=== PATIENT | female | born 1955 | race Caucasian/White ===

== ENCOUNTER 2020-10-21 06:22 | Inpatient (IN) | payer OTHER, SELFPAY ==
[~2020-10-21] VITALS: Ht 170.2 cm; Wt 71.7 kg
[2020-10-21 06:23] VITALS: BP 121/89
--- NOTE | 2020-10-21 06:25 | NUR ---
65 Y/O FEMALE PRESENTED TO ED C/O SOB SINCE THIS MORNING. PT WAS UNABLE TO GET HER DIALYSIS THIS MORNING DUE TO SOB. PT DENIES CHEST PAIN , FEVER, BODY ACHES CHILLS. +COUGH , NONPRODUCTIVE. BL LUNG SOUNDS CLEAR. A/O X 4. RR EVEN AND MILDLY LABORED. PT PRESENTED ON GARNISHER W/ AFIB. CAP REFIL < 3 SEC . MILD BL LE EDEMA NOTED. SKIN WARM AND INTACT. PT DIALYSIS PORT ON RIGHT SIDE. PT ABD APPEARS ROUND , SOFT AND NONTENDER UPON PALPATION. PT DIALYSIS IS USUALLY ON M, W, F. PT PLACED IN GOWN. PT CONNECTED TO GARNISHER, PULSE OX AND BP CUFF. ERMD MADE AWARE OF PT STATUS. PMH: CHF, CKD AX: METFORMIN
--- NOTE | 2020-10-21 06:25 | NUR ---
22 G IV PLACED IN LT WRIST , BLOOD CULTURES & BLOOD LABS COLLECTED AND HANDED TO LAB.
[2020-10-21] MEDS ORDERED: DILTIAZEM 25 MG/5 ML VIAL IVP ONE ×2 (06:30→07:20)
--- NOTE | 2020-10-21 06:45 | NUR ---
STACY VALARIE SWAB COLLECTED AND HANDED TO LAB.
[2020-10-21 07:08] LABS: BASOPHILS % (AUTO) 0.9 % (0.0-2.0); EOSINOPHILS % (AUTO) 0.6 % (0.0-4.0); HEMATOCRIT 35.7 % (36-48); LYMPHOCYTES # (AUTO) 0.8 K/uL (2.5-16.5); LYMPHOCYTES % (AUTO) 18.3 % (20.5-51.1); MEAN CORPUSCULAR HEMOGLOBIN 31 pg (27-31); MEAN CORPUSCULAR HGB CONC 34 g/dL (33-37); MEAN CORPUSCULAR VOLUME 92.3 fL (80-94); MONOCYTES # (AUTO) 0.3 K/uL (0.8-1.0); MONOCYTES % (AUTO) 7.1 % (1.7-9.3); NEUTROPHILS # (AUTO) 3.3 K/uL (1.8-7.7); NEUTROPHILS % (AUTO) 73.1 % (42.2-75.2); PLATELET COUNT (AUTO) 165 K/uL (140-450); RED BLOOD CELL COUNT(AUTO) 3.87 MIL/uL (4.20-5.40); RED CELL DISTRIBUTION WIDTH 15.9 % (11.6-13.7); WHITE BLOOD COUNT (AUTO) 4.5 K/uL (4.8-10.8)
--- NOTE | 2020-10-21 07:10 | NUR ---
PT RESTING IN BED, LOCKED AND IN LOWEST POSITION, HOB ELEVATED, SIDE RAIL X2 FOR PT SAFETY. NO ACUTE DISTRESS NOTED. VSS.
--- NOTE | 2020-10-21 07:15 | NUR ---
REPORT PROVIDED TO LYNN LUCAS FOR CONTINUATION OF CARE.
--- NOTE | 2020-10-21 07:16 | NUR ---
Report received from LYNN zuñiga, transfered care at this time.
--- NOTE | 2020-10-21 07:16 | NUR ---
Jhon chen in [facility] - 10/21/20 at 1039 by BROOKE Report received from LYNN Lebron, transfered care at this time.
[2020-10-21 07:28] LABS: ALBUMIN 2.8 g/dL (3.4-5.0); CARBON DIOXIDE 26.8 mmol/L (21-32); CREATININE 2.7 mg/dL (0.6-1.3); POTASSIUM 4.8 mmol/L (3.5-5.1); TOTAL BILIRUBIN 0.7 mg/dL (0.0-1.0)
--- NOTE | 2020-10-21 07:40 | NUR ---
Pt resting, equal visible rise and fall of chest, will continue to monitor.
--- NOTE | 2020-10-21 08:12 | NUR ---
CRITICAL LAB RESULT-Lab called Troponin level 0.180, Dr. Menchaca made aware
[2020-10-21] MEDS ORDERED: DILTIAZEM 125 MG in DEXTROSE 5% 100 ML IV ONE (08:30)
[2020-10-21] MEDS ORDERED: ASPIRIN 81 MG TAB.CHEW PO ONE (09:00)
[2020-10-21] MEDS ORDERED: SYN.05 PO (09:05)
[2020-10-21] MEDS ORDERED: POTA10TE30 PO (09:05)
[2020-10-21] MEDS ORDERED: HYDR-734 PO (09:05)
[2020-10-21] MEDS ORDERED: AMLO5TAB PO (09:05)
[2020-10-21] MEDS ORDERED: CARV25TA PO (09:05)
[2020-10-21] MEDS ORDERED: FURO-570 PO (09:05)
[2020-10-21] MEDS ORDERED: APIX2.5 PO (09:05)
[2020-10-21] MEDS ORDERED: LOSA50TA66 PO (09:05)
--- NOTE | 2020-10-21 09:09 | NUR ---
Spoke with pt family for pending admission.
[2020-10-21] MEDS ORDERED: DILTIAZEM 125 MG/25 ML VIAL IV ONE ×2 (09:17→22:17)
[2020-10-21] MEDS ORDERED: ACETAMINOPHEN 325 MG TAB PO PRN (10:40)
[2020-10-21] MEDS ORDERED: HYDROcodone/APAP 5/325 MG 1 TAB TAB PO PRN (10:40)
[2020-10-21] MEDS ORDERED: KCL 20 MEQ/WATER INJ PREMIX 200 ML IV PRN (10:40)
[2020-10-21] MEDS ORDERED: MAG SULF 2000 MG/WATER PREMIX 50 ML IV PRN (10:40)
[2020-10-21] MEDS ORDERED: LORazepam 1 MG TAB PO PRN (10:40)
[2020-10-21] MEDS ORDERED: ONDANSETRON 4 MG/2 ML VIAL IVP PRN (10:40)
[2020-10-21] MEDS ORDERED: DILTIAZEM 125 MG in DEXTROSE 5% 100 ML IV SCH (10:45)
--- NOTE | 2020-10-21 11:35 | NUR ---
Jhon chen in ED - 10/22/20 at 0534 by [facility] PT YELLING FROM HER BED TO BE ASSISTED TO A SITTING POSITION. PT SAT UP IN BED AND THEN ASKED FOR ASSISTANCE TO LAY BACK DOWN.
--- NOTE | 2020-10-21 11:37 | NUR ---
Jhon chen in [facility] - 10/21/20 at 1142 by [facility] Gave report to LYNN Dodson, pending admission [id number].
[2020-10-21] MEDS ORDERED: cefTRIAXone 1,000 MG VIAL ONE (12:28)
[2020-10-21] MEDS: FUROSEMIDE 40 MG/4 ML VIAL IVP SCH ×2 (12:41→21:00)
[2020-10-21] MEDS ORDERED: AZITHROMYCIN 500 MG INJ VIAL IV ONE (13:05)
[2020-10-21] MEDS: AZITHROMYCIN 500 MG in DEXTROSE 5% 250 ML IV SCH (13:13)
--- NOTE | 2020-10-21 16:18 | NUR ---
DR. SARAH PAULA. PT IS REQUESTING TO LEAVE AMA.
--- NOTE | 2020-10-21 16:25 | NUR ---
PT SPOKE TO DR. SMITH ON PORTABLE PHONE. PT AGREED TO STAY THE NIGHT TONIGHT.
--- NOTE | 2020-10-21 17:18 | NUR ---
Pt sleeping, repositioned self in bed, VSS, will continue to monitor.
--- NOTE | 2020-10-21 19:34 | NUR ---
Gave report to LYNN Ramirez, transfered all care at this time.
--- NOTE | 2020-10-21 19:35 | NUR ---
RECEIVED REPORT FROM LYNN LUCAS AND ASSUMED CARE.
--- NOTE | 2020-10-21 22:10 | NUR ---
PT RESTING COMFORTABLY IN BED. ALL VSS. ONE SIDE RAIL UP. ALL NEEDS MET.
--- NOTE | 2020-10-21 23:34 | NUR ---
PT YELLING FROM HER BED TO BE ASSISTED TO A SITTING POSITION. PT SAT UP IN BED AND THEN ASKED FOR ASSISTANCE TO LAY BACK DOWN.
--- NOTE | 2020-10-22 01:53 | NUR ---
PT YELLING FROM HER ROOM FOR ASSISTANCE IN SITTING UP. PT STATES THAT SHE WANTS TO GO HOME. I ADV PT THAT SHE IS SICK AND NEEDS CARE. PT VERBALIZED UNDERSTANDING.
--- NOTE | 2020-10-22 03:47 | NUR ---
PT LAYING IN BED STILL STATING THAT SHE WANTS TO GO HOME. EXPLAINED TO THE PT AGAIN THAT SHE SHOULD STAY. PT VERBALIZES UNDERSTANDING AGAIN AT THIS TIME.
--- NOTE | 2020-10-22 05:37 | NUR ---
PT RESTING IN BED AT THIS TIME. ALL NEEDS MET AND ATTENDED TO. ONE SIDE RAIL UP AND BED IN LOWEST POSITION
--- NOTE | 2020-10-22 07:15 | NUR ---
REPORT GIVEN TO LYNN GAMBINO
[2020-10-22] MEDS: FUROSEMIDE 40 MG/4 ML VIAL IVP SCH (09:21)
[2020-10-22] MEDS: DOCUSATE SODIUM 100 MG GELCAP PO SCH (09:21)
--- NOTE | 2020-10-22 09:32 | NUR ---
PATIENT HAS BEEN SCREENED AND CATEGORIZED MODERATE NUTRITION RISK. PATIENT WILL BE SEEN WITHIN 3-5 DAYS OF ADMISSION. 10/23/20 10/25/[address]
[2020-10-22 09:49] LABS: BASOPHILS % (AUTO) 0.7 % (0.0-2.0); EOSINOPHILS % (AUTO) 0.6 % (0.0-4.0); HEMATOCRIT 35.5 % (36-48); HEMOGLOBIN 11.8 g/dL (12.0-16.0); LYMPHOCYTES # (AUTO) 1.1 K/uL (2.5-16.5); LYMPHOCYTES % (AUTO) 20.5 % (20.5-51.1); MEAN CORPUSCULAR HEMOGLOBIN 31 pg (27-31); MEAN CORPUSCULAR HGB CONC 33 g/dL (33-37); MEAN CORPUSCULAR VOLUME 92.9 fL (80-94); MONOCYTES # (AUTO) 0.4 K/uL (0.8-1.0); MONOCYTES % (AUTO) 7.2 % (1.7-9.3); NEUTROPHILS # (AUTO) 3.7 K/uL (1.8-7.7); PLATELET COUNT (AUTO) 144 K/uL (140-450); RED BLOOD CELL COUNT(AUTO) 3.82 MIL/uL (4.20-5.40); WHITE BLOOD COUNT (AUTO) 5.2 K/uL (4.8-10.8)
[2020-10-22 10:13] LABS: ALBUMIN 2.9 g/dL (3.4-5.0); CARBON DIOXIDE 26.7 mmol/L (21-32); CREATININE 3.7 mg/dL (0.6-1.3); POTASSIUM 4.7 mmol/L (3.5-5.1); TOTAL BILIRUBIN 0.6 mg/dL (0.0-1.0)
[2020-10-22 10:14] LABS: CHOL/HDL RATIO 4.2 (1-4.5); MAGNESIUM 2.4 mg/dL (1.8-2.4)
[2020-10-22] MEDS ORDERED: AZITHROMYCIN 500 MG INJ VIAL IV ONE (10:47)
[2020-10-22] MEDS: AZITHROMYCIN 500 MG in DEXTROSE 5% 250 ML IV SCH (11:11)
--- NOTE | 2020-10-22 12:04 | NUR ---
Jhon chen in ED - 10/22/20 at 1209 by [facility] JORD[facility] GARCIA CALLED [facility] - TOLD THAT THEY ARE UNABLE TO DO DIALYSIS IN ER. RN HOME HEALTH MADE AWARE
[2020-10-22] MEDS ORDERED: cefTRIAXone 1,000 MG VIAL ONE (12:05)
--- NOTE | 2020-10-22 12:10 | NUR ---
SOCIAL WORK NOTE: SW WAS UNABLE TO MEET PATIENT AT BEDSIDE DUE TO MEDICAL CONDITION. SW LEFT VM WITH PATIENT'S SEAN VILLALPANDO [phone].
--- NOTE | 2020-10-22 12:18 | NUR ---
MONA RN SPOKE WITH [facility]- WILL COME TO ASSESS PATIENT
--- NOTE | 2020-10-22 12:18 | NUR ---
ALHAJI DUNN SPOKE WITH [facility] NURSE- WILL COME TO ASSESS PATIENT
--- NOTE | 2020-10-22 12:18 | NUR ---
Jhon hortonelisha in [facility] - 10/22/20 at 1218 by [facility] ALHAJI DUNN SPOKE WITH [facility] NURSE- WILL COME TO ASSESS PATIENT
--- NOTE | 2020-10-22 12:41 | NUR ---
DISCHARGE PLANNING: THIS IS A 65 Y/O FEMALE PATIENT FROM HOME, WHO CAME IN DUE TO SHORT OF BREATH. PAST MEDICAL HISTORY INCLUDE ESRD, HTN. INITIAL DIAGNOSIS OF UNCONTROLLED AFIB, COVID 19. RAPID TEST POSITIVE. ON ROCEPHIN, AZITHROMYCIN, LASIX. CXR SHOWED CARDIOMEGALY WITH PULMONARY VASCULAR CONGESTION AND LIKE INTERSTITIAL EDEMA. SUPERIMPOSED PNEUMONIA CANNOT BE EXCLUDED. CARDIO, NEPHRO AND PULMO CONSULTS IN PLACE. DC PLAN PENDING ON PATIENTS RESPONSE TO TREATMENT. Addendum: 10/24/20 at 1245 by Leslie Graham CM DC EDGE BEADER: CALLED PATIENTS TO CLARIFY WHICH LOCATION PATIENT RECEIVED DIALYSIS AT. HE CONFIRMED THAT PATIENT RECEIVES DIALYSIS AT THE [facility] [phone] HOWEVER SHE IS COVID POSTIVE SO WILL HAVE TO GO TO A DIFFERENT LOCATION Addendum: 10/24/20 at 1248 by Leslie Graham CM DC EDGE BEADER: SPOKE TO TASHI AT [facility] PATIENT [place] [facility] HE WILL BE CONTACTING THE PATIENT WITH HER NEW CHAIR TIME Addendum: 10/24/20 at 1603 by Leslie Graham CM JODIE PEREZ: LATE ENTRY FAXED ORDER FOR HOME 02 TO [facility]. SPOKE TO BEVERLY AT [facility] [phone] HE STATED THAT ALL HIS DRIVERS WENT HOME FOR THE DAY. Addendum: 10/24/20 at 1610 by Leslie Graham CM JODIE PEREZ: NOTIFIED LYNN SPARROW THAT HOME 02 CAN NOT BE DELIVERED TODAY. Addendum: 10/24/20 at 1617 by Leslie Graham CM JODIE PEREZ: FOLLOWED UP WITH BEVERLY [phone] AT [facility] THEY WILL NOT BE WORKING TOMORROW BUT RETURNING ON WEDNESDAY WITH THEIR TANK WASHER STAFF
--- NOTE | 2020-10-22 15:24 | NUR ---
PER DR SMITH, PT OKAY TO DOWNGRADE TO TELE.
--- NOTE | 2020-10-22 16:13 | NUR ---
DIALYSIS NURSE AT BEDSIDE
--- NOTE | 2020-10-22 16:16 | NUR ---
REPORT GIVEN TO LYNN SMALL. TRANSFER OF CARE AT THIS TIME.
--- NOTE | 2020-10-22 16:30 | NUR ---
DIALYSIS NURSE AT BEDSIDE, VSS, NO DISTRESS AT THIS TIME
--- NOTE | 2020-10-22 18:17 | NUR ---
2000ML OUT FROM DIALYSIS, VSS, NO ACUTE DISTRESS AT THIS TIME
--- NOTE | 2020-10-22 19:23 | NUR ---
REPORT RECEIVED FROM STACI BAILEY FOR CONTINUITY OF CARE. PT ON 4 L NASAL CANNULA. A&OX4. IV SITES R SUBCLAVIAN PORT, LAC 22G, LHAND 22G, ALL SALINE LOCKED, INTACT, PATENT AND GOOD BLOOD RETURN.
--- NOTE | 2020-10-22 19:23 | NUR ---
PT ENDORSED TO PATRICK BAILEY
--- NOTE | 2020-10-22 21:00 | NUR ---
PT ON 4 L NASAL CANNULA. O2 SATURATION 94%. WILL CONTINUE TO MONITOR.
--- NOTE | 2020-10-22 23:00 | NUR ---
RECEIVED CALL FROM PT'S FAMILY. UPDATED ON PT STATUS. ALL QUESTIONS AND CONCERNS ANSWERED AT THIS TIME.
--- NOTE | 2020-10-23 01:20 | NUR ---
PT HAS EYES CLOSED, RESPIRATIONS EVEN AND UNLABORED. CHEST RISE IS SYMMETRICAL. WILL CONTINUE TO MONITOR.
--- NOTE | 2020-10-23 03:44 | NUR ---
PT HAS EYES CLOSED, RESPIRATIONS EVEN AND UNLABORED. CHEST RISE IS SYMMETRICAL. WILL CONTINUE TO MONITOR.
--- NOTE | 2020-10-23 05:30 | NUR ---
PT HAS EYES CLOSED, RESPIRATIONS EVEN AND UNLABORED. CHEST RISE IS SYMMETRICAL. WILL CONTINUE TO MONITOR.
--- NOTE | 2020-10-23 06:15 | NUR ---
PT ABLE TO USE COMMODE. STEADY GAIT.
--- NOTE | 2020-10-23 07:00 | NUR ---
DR TOMLIN IN TO SEE IN PT. UPDATED ON PT STATUS
--- NOTE | 2020-10-23 07:28 | NUR ---
REPORT GIVEN TO JOSHUA BAILEY FOR CONTINUITY OF CARE
[2020-10-23] MEDS: METOPROLOL 25 MG TAB PO SCH ×2 (09:00→21:00)
[2020-10-23] MEDS: DOCUSATE SODIUM 100 MG GELCAP PO SCH (09:00)
--- NOTE | 2020-10-23 09:01 | NUR ---
Stable VSS Afebrile Has been admitted Awaiting bed on floor
[2020-10-23 09:03] LABS: BASOPHILS % (AUTO) 0.6 % (0.0-2.0); EOSINOPHILS % (AUTO) 0.6 % (0.0-4.0); HEMATOCRIT 34.4 % (36-48); HEMOGLOBIN 11.7 g/dL (12.0-16.0); LYMPHOCYTES # (AUTO) 0.9 K/uL (2.5-16.5); LYMPHOCYTES % (AUTO) 15.8 % (20.5-51.1); MEAN CORPUSCULAR HEMOGLOBIN 31 pg (27-31); MEAN CORPUSCULAR HGB CONC 34 g/dL (33-37); MEAN CORPUSCULAR VOLUME 91.1 fL (80-94); MONOCYTES # (AUTO) 0.4 K/uL (0.8-1.0); MONOCYTES % (AUTO) 6.9 % (1.7-9.3); NEUTROPHILS # (AUTO) 4.4 K/uL (1.8-7.7); NEUTROPHILS % (AUTO) 76.1 % (42.2-75.2); PLATELET COUNT (AUTO) 138 K/uL (140-450); RED BLOOD CELL COUNT(AUTO) 3.77 MIL/uL (4.20-5.40); RED CELL DISTRIBUTION WIDTH 15.8 % (11.6-13.7); WHITE BLOOD COUNT (AUTO) 5.7 K/uL (4.8-10.8)
--- NOTE | 2020-10-23 09:22 | NUR ---
SAdmitted report to floor Ambulated to Rm Placed in bed Nurse aware
[2020-10-23 09:30] VITALS: BP 141/88
--- NOTE | 2020-10-23 10:00 | NUR ---
Admitted from ED , with chief complaint of SOB. DX: Uncontrolled Afib, Covid positive. pt is a 65 y/o ,Female, Cooperative, oriented to call light, bed, phone,television, bathroom, smoking policy,visiting hours, procedures, ID bracelet on. Belongings list checked. instructed pt to call for assistance, call light within reach, pt verbalized understanding.
[2020-10-23 10:02] LABS: ALBUMIN 2.8 g/dL (3.4-5.0); ANION GAP 13.8 (8-16); CARBON DIOXIDE 27.3 mmol/L (21-32); CREATININE 3.2 mg/dL (0.6-1.3); POTASSIUM 4.1 mmol/L (3.5-5.1); TOTAL BILIRUBIN 0.6 mg/dL (0.0-1.0)
[2020-10-23 11:09] LABS: MAGNESIUM 2.1 mg/dL (1.8-2.4)
[2020-10-23 12:00] VITALS: BP 133/77
[2020-10-23] MEDS: AZITHROMYCIN 500 MG in DEXTROSE 5% 250 ML IV SCH (12:06)
[2020-10-23 16:00] VITALS: BP 118/69
--- NOTE | 2020-10-23 19:15 | NUR ---
PT RESTING ON HER LEFT SIDE. NO SOB NOTED. NO SIGNS OF PAIN. WILL ENDORSE TO NEXT SHIFT NURSE FOR CONTINUITY OF CARE.
[2020-10-23 20:00] VITALS: BP 111/84
[2020-10-24] VITALS: BP 148/107
[2020-10-24 04:00] VITALS: BP 133/80
--- NOTE | 2020-10-24 07:25 | NUR ---
RECEIVED PATIENT FROM NIGHT NURSE. PATIENT IN BED SLEEPING, CHEST NOTED RISING. NO ACUTE S/S DISTRESS. RESP EVEN AND UNLABORED ON 3LNC. HD PATIENT ON WEDNESDAY AND WEDNESDAY. RIJ FOR HD. LAC 20G AND LH 22G. HOB ELEVATED. CALL LIGHT WITHIN REACH. WILL CONTINUE TO MONITOR.
[2020-10-24 08:00] VITALS: BP 132/76
[2020-10-24] MEDS: DOCUSATE SODIUM 100 MG GELCAP PO SCH ×2 (09:00→09:43)
[2020-10-24 09:39] LABS: BASOPHILS # (AUTO) 0.1 K/uL (0.00-0.22); EOSINOPHILS % (AUTO) 0.4 % (0.0-4.0); HEMATOCRIT 36.7 % (36-48); HEMOGLOBIN 12.4 g/dL (12.0-16.0); LYMPHOCYTES # (AUTO) 0.8 K/uL (2.5-16.5); MEAN CORPUSCULAR HEMOGLOBIN 31 pg (27-31); MEAN CORPUSCULAR HGB CONC 34 g/dL (33-37); MEAN CORPUSCULAR VOLUME 91.3 fL (80-94); MONOCYTES # (AUTO) 0.4 K/uL (0.8-1.0); MONOCYTES % (AUTO) 7.1 % (1.7-9.3); NEUTROPHILS # (AUTO) 4.1 K/uL (1.8-7.7); NEUTROPHILS % (AUTO) 76.5 % (42.2-75.2); PLATELET COUNT (AUTO) 160 K/uL (140-450); RED BLOOD CELL COUNT(AUTO) 4.02 MIL/uL (4.20-5.40); RED CELL DISTRIBUTION WIDTH 15.8 % (11.6-13.7); WHITE BLOOD COUNT (AUTO) 5.3 K/uL (4.8-10.8)
[2020-10-24] MEDS: METOPROLOL 25 MG TAB PO SCH ×2 (09:43→23:00)
--- NOTE | 2020-10-24 09:43 | NUR ---
PATIENT SITTING UP IN BED AWAKE AND ALERT. ABLE TO MAKE NEEDS KNOWN. RESP EVEN AND UNLABORED ON ROOM AIR. NO NOTED SOB. NASAL CANULA ON BED AND WAS ENCOURAGED PATIENT TO USE IF FEELING ANY SOB. PATIENT VERBALIZED UNDERSTANDING. LAC 20G AND LH 22G INTACT AND PATENT, SL. RIGHT IJ NOTED FOR HD. MORNING ROUTINE MEDICATIONS GIVEN. PLAN OF CARE DISCUSSED, PATIENT VERBALIZED UNDERSTANDING. CALL LIGHT WITHIN REACH. WILL CONTINUE TO MONITOR.
[2020-10-24 10:37] LABS: ALBUMIN 2.7 g/dL (3.4-5.0); ANION GAP 14.6 (8-16); CARBON DIOXIDE 26.9 mmol/L (21-32); CREATININE 3.5 mg/dL (0.6-1.3); MAGNESIUM 2.3 mg/dL (1.8-2.4); POTASSIUM 4.5 mmol/L (3.5-5.1); TOTAL BILIRUBIN 0.7 mg/dL (0.0-1.0)
--- NOTE | 2020-10-24 11:35 | NUR ---
PATIENT SLEEPING IN BED, CHEST NOTED RISING. NO ACUTE S/S DISTRESS. CALL LIGHT WITHIN REACH. WILL CONTINUE TO MONITOR.
[2020-10-24] MEDS: AZITHROMYCIN 500 MG in DEXTROSE 5% 250 ML IV SCH (11:55)
[2020-10-24 12:00] VITALS: BP 127/75
--- NOTE | 2020-10-24 14:24 | NUR ---
ROUTINE MEDICATIONS GIVEN. PATIENT IN BED AWAKE AND ALERT. HD ORDER FOR TODAY. PATIENT VERBALIZED UNDERSTANDING. MESSAGE LEFT TO HD NURSE. NO ACUTE S/S DISTRESS. CALL LIGHT WITHIN REACH. WILL CONTINUE TO MONITOR.
[2020-10-24 16:00] VITALS: BP 155/91
--- NOTE | 2020-10-24 16:38 | NUR ---
PATIENT IN BED SLEEPING, NO NOTED ACUTE S/S DISTRESS. RESP EVEN AND UNLABORED ON 3L NC, O2SAT 91%. CALL LIGHT WITHIN REACH. WILL CONTINUE TO MONITOR.
--- NOTE | 2020-10-24 17:35 | NUR ---
HD STARTED. PATIENT IN STABLE CONDITION.
--- NOTE | 2020-10-24 19:30 | NUR ---
HD COMPLETE. 2L OUTPUT. ENDORSED PATIENT TO NIGHT NURSE. PATIENT IN STABLE CONDITION.
--- NOTE | 2020-10-24 19:30 | NUR ---
RECEIVED PT . AAOX4 , NID , IV SITES INTACT AND PATENT , ON TELE MONITOR , O2 SAT WNL . POST HD TODAY W/ 2L OUTPUT . SAFETY MEASURES IN PLACE . CALL LIGHT WITHIN REACH . PLAN OF CARE DISCUSSED AND VERBALIZATION OF [id number] . WILL. TO MONITOR .
--- NOTE | 2020-10-25 00:37 | NUR ---
PT'S # [phone] Addendum: 10/25/20 at 0038 by Carmen Isbell RN SEAN VILLALPANDO
--- NOTE | 2020-10-25 02:00 | NUR ---
PT WANTS TO GO HOME . AMA - KRISTIN INFORM
--- NOTE | 2020-10-25 02:04 | NUR ---
PAGE DR Elda Camacho PT WANTS GO HOME NOW .
--- NOTE | 2020-10-25 02:05 | NUR ---
DR Elda BURCIAGA CALLBACK - INFORM PT WANTS TO GO HOME . DR. BURCIAGA AWARE THAT THE PT. IS COVID + AND ON O2 INHALATION .
--- NOTE | 2020-10-25 02:20 | NUR ---
EXPLAIN TO PT SHE IS COVID POSITIVE AND EXPLAIN TO HER IF EVER ANYTHING DOES NOT RIGHT - ADVICE HER TO GO IN THE ER - -PT'S VERBALIZE UNDERSTANDING . SIGN AMA WAIVER FORM - WILL INFORM DIRECTOR NETWORK DEVELOPMENT .
--- NOTE | 2020-10-25 02:45 | NUR ---
PT DISCHARGE AMA . STABLE CONDITION . PT. SKEET OPERATOR BY AND PT'S SISTER BY PRIVATE CAR . INFORM FOOD PROCESSING PLANT MANAGER Addendum: 10/25/20 at 0330 by Carmen Isbell RN AFTER EXPLAINATION OF THE CONSEQUENCES FOR BEING AMA PT STILL WANTS TO GO HOME AMA - PT. SIGNED THE AMA FORM
== END 2020-10-25 02:40 | disposition left against medical advice (07) | DRG 137 ==
LOC: MED 06:22 → MTU 10:42 → MMU 10-23 08:41 → MTU 10-23 09:10
PROVIDERS: ADMIT Hospitalist; ATTEND Hospitalist
PROC: 5A1D70Z Performance of Urinary Filtration, Intermittent, Less than 6 Hours Per Day (ICD-10-PCS; principal; 2020-10-21)
PROC: 5A1D70Z Performance of Urinary Filtration, Intermittent, Less than 6 Hours Per Day (ICD-10-PCS; 2020-10-24)
DX: U07.1 COVID-19 (principal); I13.2 Hypertensive heart and chronic kidney disease with heart failure and with stage 5 chronic kidney disease, or end stage renal disease; N18.6 End stage renal disease; Z99.2 Dependence on renal dialysis; I50.43 Acute on chronic combined systolic (congestive) and diastolic (congestive) heart failure; I48.91 Unspecified atrial fibrillation; N17.9 Acute kidney failure, unspecified; J12.89 Other viral pneumonia
CPT/HCPCS: 36415; 71045; 80053; 83036; 83735; 83880; 84484; 85025; 85379; 87081; 96374; 96375; 99291; J0456; J0696; J1644; J1940; J3490; J7060

== ENCOUNTER 2020-11-12 18:07 | Emergency (ER) | payer OTHER, SELFPAY ==
[~2020-11-12] VITALS: Ht 170.2 cm; Wt 77.1 kg
[~2020-11-12 18:07] MED LIST: AMLO5TAB PO; APIX2.5 PO; CARV25TA PO; FURO-570 PO; HYDR-734 PO; LOSA50TA66 PO; POTA10TE30 PO; SYN.05 PO
[2020-11-12 18:38] VITALS: BP 130/97
[2020-11-12 19:20] VITALS: BP 130/97
[2020-11-12 19:57] LABS: BASOPHILS # (AUTO) 0.2 K/uL (0.00-0.22); BASOPHILS % (AUTO) 4.1 % (0.0-2.0); EOSINOPHILS # (AUTO) 0.2 K/uL (0-0.4); EOSINOPHILS % (AUTO) 4.4 % (0.0-4.0); HEMATOCRIT 38.6 % (36-48); HEMOGLOBIN 12.6 g/dL (12.0-16.0); LYMPHOCYTES # (AUTO) 0.7 K/uL (2.5-16.5); LYMPHOCYTES % (AUTO) 17.6 % (20.5-51.1); MEAN CORPUSCULAR HEMOGLOBIN 31 pg (27-31); MEAN CORPUSCULAR HGB CONC 33 g/dL (33-37); MEAN CORPUSCULAR VOLUME 95.9 fL (80-94); MONOCYTES # (AUTO) 0.4 K/uL (0.8-1.0); MONOCYTES % (AUTO) 8.9 % (1.7-9.3); NEUTROPHILS # (AUTO) 2.8 K/uL (1.8-7.7); PLATELET COUNT (AUTO) 102 K/uL (140-450); RED BLOOD CELL COUNT(AUTO) 4.03 MIL/uL (4.20-5.40); RED CELL DISTRIBUTION WIDTH 18.2 % (11.6-13.7); WHITE BLOOD COUNT (AUTO) 4.3 K/uL (4.8-10.8)
[2020-11-12 20:07] LABS: APPEARANCE,URINE CLOUDY (CLEAR); BILIRUBIN,URINE 1+ (NEGATIVE); BLOOD, URINE 3+ (NEGATIVE); COLOR,URINE DARK YELLOW (YELLOW); LEUKOCYTE ESTERASE ,URINE TRACE (NEGATIVE); NITRITE, URINE NEGATIVE (NEGATIVE); PH,URINE 5.5 (5.0-9.0); UGLUCOSE NEGATIVE (NEGATIVE)
[2020-11-12 20:15] LABS: CREATININE 3.5 mg/dL (0.6-1.3); TOTAL BILIRUBIN 0.8 mg/dL (0.0-1.0)
[2020-11-12 20:25] LABS: POTASSIUM 5.9 mmol/L (3.5-5.1)
[2020-11-12 20:27] LABS: ANION GAP 13.2 (8-16); CARBON DIOXIDE 27.7 mmol/L (21-32)
[2020-11-12 20:40] LABS: RBC,URINE 20-50 /HPF (0-5); URINE AMORPHOUS URATE 2+ /HPF (None Seen); WBC,URINE 0-5 /HPF (0-5)
[2020-11-13] MEDS ORDERED: DOCU-300 PO (20:49)
[2020-11-13] MEDS ORDERED: ROSU20TA1 PO (20:49)
== END 2020-11-12 20:45 | disposition left against medical advice (07) ==
LOC: MED 18:07
DX: R14.0 Abdominal distension (gaseous) (principal); I12.0 Hypertensive chronic kidney disease with stage 5 chronic kidney disease or end stage renal disease; N18.6 End stage renal disease; E87.5 Hyperkalemia; I10 Essential (primary) hypertension; Z99.2 Dependence on renal dialysis; Z88.8 Allergy status to other drugs, medicaments and biological substances; Z98.890 Other specified postprocedural states; Z79.899 Other long term (current) drug therapy
CPT/HCPCS: 36415; 80053; 81001; 83690; 85025; 99284

== ENCOUNTER 2020-11-13 19:43 | Inpatient (IN) | payer OTHER, SELFPAY ==
[~2020-11-13] VITALS: Ht 170.2 cm; Wt 77.1 kg
[2020-11-13 19:52] VITALS: BP 133/78
--- NOTE | 2020-11-13 20:17 | NUR ---
PT TAKEN TO BED 1
--- NOTE | 2020-11-13 20:22 | NUR ---
EMERGENCY CONTACT: LEO -SISTER
--- NOTE | 2020-11-13 20:40 | NUR ---
currently states unable to provide urine right now.
--- NOTE | 2020-11-13 20:42 | NUR ---
Note undone in EDM - 11/13/20 at 4 by [email or web address] ACTUALLY HOSPITALIZED IN OCTOBER FOR SAME ISSUE BUT CHECKED HER SELF OUT AMA. THE BLOATING TO HER ABD HAS GOTTEN WORSE OVER THE PAST WEEK. ABD IS SEVERELY DISTENDED AND FIRM TO TOUCH, PT STATES SHE HAS PAIN BUT CURRENTLY DENIES ANY. PT ALSO HAS SWELLING AND TIGHTNESS TO BILATERAL LEGS, PT HAS DIFFICULTLY AMBULATING DUE TO LEG PAIN AND DISCOMFORT. PT DENIES ANY LIVER ISSUES HAS COPD, CHF, KIDNEY FAILURE. DENIES N/V HAS BEEN HAVING CONSTIPATION AND DIARRHEA. BOWELS SOUNDS HYPOACTIVE. PT DENIES EVER HAVING PARACENTESIS. PT PLACED IN GOWN, AND ON BEDSIDE MONITOR. BED IN LOWEST POSITION AND SIDERAIL UP X 1. HX - CHF, COPD, RENAL FAILURE, DM, HTN ALLERGY - METFORMIN
--- NOTE | 2020-11-13 20:44 | NUR ---
PT COMING IN FOR SEVERE ABD DISTENTION, POSSIBLE ASCITIES, SINCE OCTOBER. PT WAS ACTUALLY HOSPITALIZED IN OCTOBER FOR SAME ISSUE BUT CHECKED HER SELF OUT AMA. THE BLOATING TO HER ABD HAS GOTTEN WORSE OVER THE PAST WEEK. ABD IS SEVERELY DISTENDED AND FIRM TO TOUCH, PT STATES SHE HAS PAIN BUT CURRENTLY DENIES ANY. PT ALSO HAS SWELLING AND TIGHTNESS TO BILATERAL LEGS, PT HAS DIFFICULTLY AMBULATING DUE TO LEG PAIN AND DISCOMFORT. PT DENIES ANY LIVER ISSUES HAS COPD, CHF, KIDNEY FAILURE. DENIES N/V HAS BEEN HAVING CONSTIPATION AND DIARRHEA. BOWELS SOUNDS HYPOACTIVE. PT DENIES EVER HAVING PARACENTESIS. PT PLACED IN GOWN, AND ON BEDSIDE MONITOR. BED IN LOWEST POSITION AND SIDERAIL UP X 1. HX - CHF, COPD, RENAL FAILURE, DM, HTN ALLERGY - METFORMIN
--- NOTE | 2020-11-13 20:45 | NUR ---
PT HAS [facility] DIALYSIS CATH TO RIGHT UPPER CHEST, STATES LAST DIAYLSIS WAS 2 DAYS AGO
[2020-11-13 20:46] LABS: HEMATOCRIT 38.4 % (36-48); HEMOGLOBIN 12.5 g/dL (12.0-16.0); WHITE BLOOD COUNT (AUTO) 3.7 K/uL (4.8-10.8)
[2020-11-13] MEDS ORDERED: DOCU-300 PO (20:49)
[2020-11-13] MEDS ORDERED: ROSU20TA1 PO (20:49)
[2020-11-13 20:50] LABS: BASOPHILS # (AUTO) 0.1 K/uL (0.00-0.22); BASOPHILS % (AUTO) 1.8 % (0.0-2.0); EOSINOPHILS # (AUTO) 0.2 K/uL (0-0.4); EOSINOPHILS % (AUTO) 6.1 % (0.0-4.0); LYMPHOCYTES # (AUTO) 0.8 K/uL (2.5-16.5); LYMPHOCYTES % (AUTO) 22.2 % (20.5-51.1); MEAN CORPUSCULAR HEMOGLOBIN 31 pg (27-31); MEAN CORPUSCULAR HGB CONC 33 g/dL (33-37); MEAN CORPUSCULAR VOLUME 95.9 fL (80-94); MONOCYTES # (AUTO) 0.3 K/uL (0.8-1.0); MONOCYTES % (AUTO) 8.6 % (1.7-9.3); NEUTROPHILS # (AUTO) 2.3 K/uL (1.8-7.7); NEUTROPHILS % (AUTO) 61.3 % (42.2-75.2); PLATELET COUNT (AUTO) 123 K/uL (140-450); RED CELL DISTRIBUTION WIDTH 17.9 % (11.6-13.7)
--- NOTE | 2020-11-13 20:50 | NUR ---
PT BROUGHT IN HER PRESCRIPTIONS BUT THE [facility] ARE OUT ACCEPT FOR LASIX AND K+, PT STATES SHE HASN'T HAD THEM FOR A WHILE
--- NOTE | 2020-11-13 20:52 | NUR ---
ekg performed at bedside. ekg reads atrial flutter with predominant 2:1 av block
[2020-11-13 21:04] LABS: ALBUMIN 3.2 g/dL (3.4-5.0); CREATININE 3.7 mg/dL (0.6-1.3); TOTAL BILIRUBIN 1.1 mg/dL (0.0-1.0)
[2020-11-13 21:08] LABS: ANION GAP 12.9 (8-16); CARBON DIOXIDE 27.8 mmol/L (21-32)
--- NOTE | 2020-11-13 21:08 | NUR ---
IN AND OUT CATH DONE, URINE COLLECTED AND TAKEN TO LAB
[2020-11-13 21:11] LABS: POTASSIUM 5.7 mmol/L (3.5-5.1)
[2020-11-13 21:14] LABS: APPEARANCE,URINE CLOUDY (CLEAR); BILIRUBIN,URINE 1+ (NEGATIVE); BLOOD, URINE 2+ (NEGATIVE); COLOR,URINE DARK YELLOW (YELLOW); LEUKOCYTE ESTERASE ,URINE NEGATIVE (NEGATIVE); NITRITE, URINE NEGATIVE (NEGATIVE); PH,URINE 5.5 (5.0-9.0); UGLUCOSE NEGATIVE (NEGATIVE)
[2020-11-13] MEDS ORDERED: DEXTROSE 50% 50 ML SYR IVP ONE (21:20)
[2020-11-13] MEDS ORDERED: SODIUM ZIRCONIUM CYCLOSILICATE 10 GM POWD.PACK PO ONE (21:20)
[2020-11-13] MEDS ORDERED: CALCIUM GLUCONATE 10% 1000 MG/10 ML VIAL IVP ONE (21:20)
[2020-11-13] MEDS ORDERED: INSULIN REGULAR, HUMAN 100 UNIT/ML VIAL IVP ONE (21:20)
[2020-11-13 21:34] LABS: RBC,URINE 11-20 (MOD) /HPF (0-5); URINE AMORPHOUS URATE 2+ /HPF (None Seen); WBC,URINE 0-5 /HPF (0-5)
--- NOTE | 2020-11-13 22:00 | NUR ---
PT NEED TO USE RESTROOM, SET UP BEDPAN ON CHAIR, PT REFUSED TO USE AND INSISTED ON WALKING TO THE RESTROOM. PT NOT ABLE TO GET BACK TO ROOM BY HERSELF. ADVISED PT SHE WILL FRANCISCO TO USE BEDSIDE COMMODE FROM NOW ON.
[2020-11-13] MEDS ORDERED: LORazepam 0.5 MG TAB PO ONE (22:45)
[2020-11-13] MEDS ORDERED: ZOLPIDEM 5 MG TAB PO PRN (23:40)
[2020-11-13] MEDS ORDERED: ONDANSETRON 4 MG/2 ML VIAL IVP PRN (23:40)
[2020-11-13] MEDS ORDERED: ACETAMINOPHEN 325 MG TAB PO PRN (23:40)
[2020-11-13] MEDS ORDERED: LORazepam 1 MG TAB PO PRN (23:40)
--- NOTE | 2020-11-13 23:47 | NUR ---
PAGED DR GUERRA TO GET ORDERS FOR PAIN MED FOR PT, PT C/O ABD PAIN 06/10.
[2020-11-13] MEDS ORDERED: ASPIRIN 325 MG TAB ONE ×2 (23:51→23:52)
[2020-11-13] MEDS ORDERED: ACETAMINOPHEN 325 MG TAB ONE (23:51)
[2020-11-13] MEDS ORDERED: PANTOPRAZOLE 40 MG INJ VIAL ONE (23:51)
--- NOTE | 2020-11-14 00:02 | NUR ---
RECEIVED ORDERD FROM ADMITTING
[2020-11-14] MEDS: HYDROcodone/APAP 5/325 MG 1 TAB TAB PO PRN ×6 (00:15→23:40)
--- NOTE | 2020-11-14 00:56 | NUR ---
VALARIE SWAB COLLECTED FROM PT AND GIVEN TO METAL DRILL OPERATOR
[2020-11-14] MEDS: ALBUTEROL SULFATE/IPRATROPIU 3 ML SOL IH SCH ×2 (01:00→07:00)
--- NOTE | 2020-11-14 01:32 | NUR ---
COVID SWAB DONE AND WALKED TO LAB
--- NOTE | 2020-11-14 02:51 | NUR ---
ASSISTED PT TO BEDSIDE COMMODE. AND PLACED BACK IN BED AFTER URINATING. PT REMAINS ON BEDSIDE MONITOR. WILL CONTINUE TO MONITOR. PT IS REQUESTIONS MORE MEDS, ADVISED NOT QUITE TIME YET
--- NOTE | 2020-11-14 03:45 | NUR ---
MEDICATED FOR NAUSEA AND ABD PAIN
--- NOTE | 2020-11-14 05:11 | NUR ---
PT SLEEPING, REMAINS ON BEDSIDE MONITOR. RESPIRATIONS REGULAR EVEN AND UNLABORED
--- NOTE | 2020-11-14 07:29 | NUR ---
Pt report given to BLOSSOM BAILEY. Transfer of care at this time.
[2020-11-14 07:56] LABS: BASOPHILS # (AUTO) 0.1 K/uL (0.00-0.22); BASOPHILS % (AUTO) 1.4 % (0.0-2.0); EOSINOPHILS # (AUTO) 0.3 K/uL (0-0.4); HEMATOCRIT 35.3 % (36-48); HEMOGLOBIN 11.5 g/dL (12.0-16.0); LYMPHOCYTES % (AUTO) 23.4 % (20.5-51.1); MEAN CORPUSCULAR HEMOGLOBIN 31 pg (27-31); MEAN CORPUSCULAR HGB CONC 33 g/dL (33-37); MEAN CORPUSCULAR VOLUME 96.2 fL (80-94); MONOCYTES # (AUTO) 0.5 K/uL (0.8-1.0); MONOCYTES % (AUTO) 10.5 % (1.7-9.3); NEUTROPHILS # (AUTO) 2.6 K/uL (1.8-7.7); NEUTROPHILS % (AUTO) 58.7 % (42.2-75.2); PLATELET COUNT (AUTO) 114 K/uL (140-450); RED BLOOD CELL COUNT(AUTO) 3.67 MIL/uL (4.20-5.40); RED CELL DISTRIBUTION WIDTH 18.2 % (11.6-13.7); WHITE BLOOD COUNT (AUTO) 4.4 K/uL (4.8-10.8)
[2020-11-14 08:37] LABS: ALBUMIN 2.7 g/dL (3.4-5.0); ANION GAP 15.9 (8-16); CARBON DIOXIDE 24.6 mmol/L (21-32); CREATININE 3.8 mg/dL (0.6-1.3); POTASSIUM 5.5 mmol/L (3.5-5.1); TOTAL BILIRUBIN 0.8 mg/dL (0.0-1.0)
[2020-11-14] MEDS ORDERED: amLODIPine 5 MG TAB PO SCH (09:00)
[2020-11-14] MEDS ORDERED: NON-FORMULARY ITEM (Rosuvastatin Calcium* (Crestor*) 1 TAB) PO SCH (09:00)
[2020-11-14] MEDS: FUROSEMIDE 40 MG/4 ML VIAL IVP SCH ×2 (09:13→17:29)
[2020-11-14] MEDS: carvediloL 12.5 MG TAB PO SCH ×2 (09:15→20:20)
--- NOTE | 2020-11-14 09:15 | NUR ---
PATIENT HAS BEEN SCREENED AND CATEGORIZED MODERATE NUTRITION RISK. PATIENT WILL BE SEEN WITHIN 3-5 DAYS OF ADMISSION. 11/16/20 11/18/[address]
[2020-11-14] MEDS: APIXABAN 2.5 MG TAB PO SCH ×2 (09:16→20:17)
[2020-11-14] MEDS: DOCUSATE SODIUM 100 MG GELCAP PO SCH (09:17)
--- NOTE | 2020-11-14 09:31 | NUR ---
Patient will be admitted to care of [facility]. Admited to TELE. Will go to [id number]. Belongings list completed. Report to PAULY BAILEY.
--- NOTE | 2020-11-14 09:50 | NUR ---
RECEIVED THIS 65 YEAR OLD FEMALE PER JET FROM ER, ADMITTED A CASE OF CHF,ANASARCA UNDER DR. IQBAL, AWAKE,ALERT, ORIENTEDX4, BREATHING SPONTANEOUSLY WITH O2 AT 2L/MIN VIA NC, NOT IN DISTRESS NOTED, WITH IV CANNULA G18 AT LEFT AC ON SALINE LOCK NOTED, SAFETY MEASURES IN PLACE AND CONTINUE MONITOR
--- NOTE | 2020-11-14 09:50 | NUR ---
RECEIVED THIS 65YEAR OLD FEMALE PER JET FROM ER, AWAKE, ALERT, ORIENTEDX4 , BREATHING SPONTANEOUSLY WITH O2 AT 2L/MIN VIA NC, NOT IN DISTRESS NOTED. ADMITTED A CASE OF ANASARCA UNDER DR. IQBAL, TELEMETRY. WITH LEFT AC G18 ON SALINE LOCK AND RT CHEST TUNNELED CATHETER FOR HEMODIALYSIS NOTED. NO TELEMETRY BOX AVAILABLE. SAFETY MEASURES IN PLACE AND CONTINUE MONITOR
--- NOTE | 2020-11-14 10:09 | NUR ---
SOCIAL WORK NOTE: Patient's Orientation Unable To Assess Information Provided By SEAN VILLALPANDO - Comments SW WAS UNABLE TO MEET PATIENT AT BEDSIDE TO COMPLETE ASSESSMENT. SW COMPLETED ASSESSMENT WITH PATIENT'S . Preschool Adviser, Realtionship and Phone Number SEAN VILLALPANDO [phone] Healthcare Power of Directional Bore Operator No Does Patient Have a POLST No Identifying Problems No Social Work Triggers Is A Social Work Consult Needed No Mandate Report Filed No Explanation Of Identifying Problems PATIENT IS A 65-YEAR-OLD FEMALE ADMITTED FOR ANASARCA. PATIENT HAS PMHX OF CARDIAC DISORDERS, HYPERTENSION, AND RENAL DISEASE. REPORTED NO HX OF SUBSTANCE ABUSE OR MENTAL HEALTH. Admitted From Home Pre-Admission Level Of Functioning Status Assist With ADL Level Of Functioning Comment STATED PATIENT NEEDS ASSISTANCE WITH PREPARING MEALS AND GROCERY SHOPPING. Prior Resources/Services Used In Last 12 Months No Prior Resources Used Prior DME Wheelchair Dialysis Hemodialysis Name And Phone Number of Dialysis Facility [facility] ESRD Outpatient Days M F ESRD Outpatient Time 0500 Living Situation Lives With Family House Patient Had Caregiver No Home Support No Caregiver Issues Financial Issues No Known Financial Issue Referral To The Financial Counselor Needed No Factors/Needs No D/C Needs Identified Pt/Rep Participated In Discharge Plan Yes Patient/Family Agress With Discharge Plan Yes Discharge Plan Comments TENTATIVE DISCHARGE PLAN IS FOR PATIENT TO RETURN HOME. DC Plan Status Initiated
[2020-11-14] MEDS: hydrALAZINE 25 MG TAB PO SCH ×3 (10:44→17:00)
--- NOTE | 2020-11-14 10:44 | NUR ---
COMPLAINED OF ABDOMINAL PAIN 5/10, NORCO 1TAB ORDERED PRN AND DUE HYDRALAZINE IN AM GIVEN
--- NOTE | 2020-11-14 11:45 | NUR ---
HEMODIALYSIS STARTED AT BEDSIDE
[2020-11-14 12:09] LABS: CHOL/HDL RATIO 2.4 (1-4.5)
--- NOTE | 2020-11-14 13:45 | NUR ---
HEMODIALYSIS COMPLETED, REMOVED 1L OF FLUID, HEPARIN NON ADMINISTER
--- NOTE | 2020-11-14 15:30 | NUR ---
SEEN AND EXAMINED BY JAN GAMA NEPRO, ORDERED OF PARACENTESIS TOMORROW
--- NOTE | 2020-11-14 15:53 | NUR ---
DC PLANNIN YRS OLD FEMALE PATIENT WAS ADMITTED FROM HOME WITH A DX OF INGA. PT HAS A HX OF ESRD ON HEMODIALYSIS MWF WITH DR JOSEFA WEST AT [facility]/ RAPID COVID TEST NEGATIVE. ADMINISTERED HOME MEDS , SEEN BY DR MCCOY ACCOUNTS RECEIVABLE ACCOUNTANT ORDERED HEMODIALYSIS. DC PLAN TO GO HOME WHEN STABLE CM TO FOLLOW Addendum: 11/15/20 at 1621 by Anne Marie Gillette RN DC PLANNING: HEMODIALYSIS TODAY, PCR IS STILL PENDING, ON O2 2L/NC SATING 97% DC PLAN TO GO HOME WHEN STABLE CM TO FOLLOW Addendum: 11/16/20 at 1556 by Leslie Graham CM DC COMMUTATOR REPAIRER: RECEIVED ORDER FROM DR. IQBAL TO ARRANGE HD SCHEDULE TO [facility] FOR PATIENT. FAXED ORDER TO [facility] AND TRIED CONTACTING ISABEL IN ADMISSIONS NO ANSWER.
--- NOTE | 2020-11-14 17:02 | NUR ---
HD NURSE LOLITA PINEDA CONTACTED AND MADE AWARE THAT THE PATIENT HAD A ANOTHER HEMODIALYSIS TOMORROW
--- NOTE | 2020-11-14 19:20 | NUR ---
ENDORSED TO CULLET WASHER IN STABLE CONDITION FOR CONTINUITY OF CARE, CONSENT OBTAINED FOR PARACENTESIS
--- NOTE | 2020-11-14 19:25 | NUR ---
RECEIVED PT SITTING ON SIDE OF BED, AAOX4, COMPLAINING OF ABDOMINAL PAIN SEC TO ASCITES, WILL MEDICATE PRN, NO RESP DISTRESS WITH SAT OF 97% ON 2L NC, MAINTAIN ON DROPLET PRECAUTION FOR R/O COVID, SAFETY MEASURES IN PLACE, CALL LIGHT WITHIN REACH.
[2020-11-14 20:00] VITALS: BP 106/73
[2020-11-14] MEDS: SIMVASTATIN 40 MG TAB PO SCH (20:18)
--- NOTE | 2020-11-14 22:10 | NUR ---
PT AMBULATED TO BR USING WALKER, BM WITH SOFT STOOL, ASSISTED BACK TO BED, MONITORED CLOSELY.
[2020-11-15] VITALS: BP 115/71
[2020-11-15 04:00] VITALS: BP 103/63
--- NOTE | 2020-11-15 04:00 | NUR ---
PT SLEEPING, EASILY AROUSABLE, VITAL SIGNS STABLE, INSTRUCTED NPO FOR US OF ABDOMEN IN AM, DENIES ANY PAIN, MONITORED CLOSELY.
[2020-11-15] MEDS: ALBUTEROL SULFATE/IPRATROPIU 3 ML SOL IH SCH ×3 (07:00→19:00)
--- NOTE | 2020-11-15 07:20 | NUR ---
PT SLEEPING, NO SIGNS OF DISTRESS, REPORT GIVEN TO RN RELYN FOR CONTINUITY OF CARE.
--- NOTE | 2020-11-15 07:21 | NUR ---
RECEIVED ENDORSEMENT FROM PARTS SPECIALIST ASLEEP ON BED, BREATHING SPONTANEOUSLY WITH O2 AT 2L/MN VIA NC, NOT IN DISTRESS NOTED, WITH IV CANNULA G 18 AT LEFT AC ON SALINE LOCK AND RT CHEST TUNNELED CATHETER FOR HEMODIALYSIS. SAFETY MEASURES IN PLACE AND CONTINUE MONITOR
[2020-11-15 08:00] VITALS: BP 106/73
[2020-11-15 08:15] LABS: PROTHROMBIN TIME 12.1 secs (10.8-13.4)
[2020-11-15 08:18] LABS: BASOPHILS # (AUTO) 0.1 K/uL (0.00-0.22); BASOPHILS % (AUTO) 1.3 % (0.0-2.0); EOSINOPHILS # (AUTO) 0.2 K/uL (0-0.4); EOSINOPHILS % (AUTO) 5.3 % (0.0-4.0); HEMATOCRIT 34.6 % (36-48); HEMOGLOBIN 11.3 g/dL (12.0-16.0); LYMPHOCYTES # (AUTO) 0.6 K/uL (2.5-16.5); LYMPHOCYTES % (AUTO) 16.6 % (20.5-51.1); MEAN CORPUSCULAR HEMOGLOBIN 32 pg (27-31); MEAN CORPUSCULAR HGB CONC 33 g/dL (33-37); MEAN CORPUSCULAR VOLUME 96.6 fL (80-94); MONOCYTES # (AUTO) 0.3 K/uL (0.8-1.0); MONOCYTES % (AUTO) 8.8 % (1.7-9.3); NEUTROPHILS # (AUTO) 2.6 K/uL (1.8-7.7); PLATELET COUNT (AUTO) 128 K/uL (140-450); RED BLOOD CELL COUNT(AUTO) 3.58 MIL/uL (4.20-5.40); WHITE BLOOD COUNT (AUTO) 3.9 K/uL (4.8-10.8)
[2020-11-15 08:32] LABS: ALBUMIN 2.7 g/dL (3.4-5.0); ANION GAP 10.9 (8-16); CARBON DIOXIDE 26.7 mmol/L (21-32); CREATININE 3.4 mg/dL (0.6-1.3); MAGNESIUM 2.4 mg/dL (1.8-2.4); POTASSIUM 4.6 mmol/L (3.5-5.1); TOTAL BILIRUBIN 0.7 mg/dL (0.0-1.0)
[2020-11-15] MEDS: APIXABAN 2.5 MG TAB PO SCH ×2 (09:00→22:03)
--- NOTE | 2020-11-15 09:45 | NUR ---
RADIOLOGIST DEPARTMENT CALLED TO HOLD THE BLOOD THINNER FOR PARACENTESIS TODAY. FULLY AWAKE AND ALERT, DUE MEDICATION GIVEN WITH SIPS OF WATER,
[2020-11-15] MEDS: DOCUSATE SODIUM 100 MG GELCAP PO SCH (09:52)
[2020-11-15] MEDS: hydrALAZINE 25 MG TAB PO SCH ×3 (09:52→17:00)
[2020-11-15] MEDS: carvediloL 12.5 MG TAB PO SCH ×2 (09:53→21:00)
[2020-11-15] MEDS: FUROSEMIDE 40 MG/4 ML VIAL IVP SCH ×2 (09:54→17:31)
[2020-11-15] MEDS: HYDROcodone/APAP 5/325 MG 1 TAB TAB PO PRN ×3 (09:54→23:26)
--- NOTE | 2020-11-15 11:55 | NUR ---
INTERVENTIONAL RADIOLOGIST CAME TO DO THE PARACENTESIS, TIME OUT VERIFICATION DONE
[2020-11-15 12:00] VITALS: BP 102/73
--- NOTE | 2020-11-15 12:20 | NUR ---
PARACENTESIS DONE, REMOVED 3100ML OF FLUID, ALEXANDER COLOR NOTED. STILL AWAITING FOR DR. MCCOY IF HE WANTS TO SEND FOR DIAGNOSTIC TEST.
--- NOTE | 2020-11-15 14:10 | NUR ---
HEMODIALYSIS STARTED AT BEDSIDE
[2020-11-15 16:00] VITALS: BP 106/75
--- NOTE | 2020-11-15 16:10 | NUR ---
HEMODIALYSIS COMPLETED, 2.5L FLUID REMOVED
--- NOTE | 2020-11-15 17:31 | NUR ---
COMPLAINED OF ABDOMINAL PAIN 05/10 NORCO 1 TAB ORDERED PRN GIVEN, KEPT COMFORTABLE TO BED
--- NOTE | 2020-11-15 18:15 | NUR ---
ASCITIC FLUID SENT TO LAB FOR PANNEL TEST ORDERED BY DR. MCCOY, NEPHRO
--- NOTE | 2020-11-15 19:35 | NUR ---
ENDORSED TO IC DESIGNER CUSTOM IN STABLE CONDITION FOR CONTINUITY OF CARE
--- NOTE | 2020-11-15 19:45 | NUR ---
RECEIVED BEDSIDE REPORT FORM RN DAYSHIFT FOR CONTINUITY OF CARE, PT IN STABLE CONDITION.
[2020-11-15 19:48] LABS: APPEARANCE,SPUN,BODY FLUID HAZY (CLEAR); APPEARANCE,UNSPUN,BODY FLUID CLOUDY (CLEAR); COLOR,BODY FLUID DARK YELLOW (LT YELLOW); SPECIMENTYPE,BODY FLUID ASCITES
[2020-11-15 19:49] LABS: TOTAL VOLUME,BODY FLUID 3500 mL
[2020-11-15 20:00] VITALS: BP 90/58
--- NOTE | 2020-11-15 20:00 | NUR ---
PT SITTING UP IN BED SHE IS ON 2 LITERS VIA N/C. PT HAD NO C/O VOICED AT THIS TIME AND ALL REQUESTED NEEDS ATTENDED BY STAFF. ALL ORDERED PRECAUTIONS IN PLACE.
[2020-11-15 20:01] LABS: GLUCOSE,BODY FLUID 94 mg/dL
[2020-11-15 21:11] LABS: WBC, BODY FLUID 200 /cu. mm.
[2020-11-15 21:12] LABS: POLYNUCLEAR, BODY FLUID 20 %; RBC, BODY FLUID 10000 /cu. mm.
--- NOTE | 2020-11-15 21:45 | NUR ---
PT WAS ASSISTED UP TO TOILET AND BACK TO BED, SISTER CALLED AND WAS UPDATE REGARDING PT PROGRESS. PT WAS GIVEN DUE MEDS OF ELIQUIS AND ZOCOR. EDUCATION REGRADING MEDICATION PROVIDED AT BEDSIDE, PT VERBALIZED UNDERSTANDING. COREG WAS HELD DUE TO PT BLOOD PRESSURE 90/58. PT VERBALIZED UNDERSTANDING.
[2020-11-15] MEDS: SIMVASTATIN 40 MG TAB PO SCH (22:04)
--- NOTE | 2020-11-15 23:30 | NUR ---
PT C/O PAIN AND INSOMNIA. SHE WAS GIVEN PO/PRN AMBIEN AND NORCO, PT VERBALIZED UNDERSTANDING OF THE MEDICATIONS. ALL KNOWN REQUESTS ASSISTED BY STAFF.
[2020-11-16] VITALS: BP 118/81
[2020-11-16] MEDS: ALBUTEROL SULFATE/IPRATROPIU 3 ML SOL IH SCH ×3 (01:00→13:00)
--- NOTE | 2020-11-16 02:00 | NUR ---
PT IN BED ASLEEP, ALL ORDERED PROTOCOLS IN PLACE.
[2020-11-16 04:00] VITALS: BP 96/64
--- NOTE | 2020-11-16 04:00 | NUR ---
PT WAS ASSISTED TO TOILET PER REQUEST. PT RETURNEDE TO BED WITH USE OF WALKER AND STANDBY ASSISTANCE. GOWN CHANGED PER REQUEST.
[2020-11-16] MEDS: HYDROcodone/APAP 5/325 MG 1 TAB TAB PO PRN ×2 (06:40→10:40)
--- NOTE | 2020-11-16 07:56 | NUR ---
RECEIVED ENDORSEMENT FROM STUDIO PRODUCER NURSE. PATIENT ORIENT X4. AMB W/ ASSIST USING WALKER. LEFT AC SL INTACT. SKIN INTEGRITY INTACT. 2L NC. HD 11/14 1L OUTPUT, 11/15 2.5L OUTPUT. RIGHT SC OSMAN CATH. ULTRASOUND GUIDED PARACENTESIS 3.1L OUTPUT. SAFETY MEASURES IN PLACE. CALL LIGHT WITHIN REACH. WILL CONTINUE TO MONITOR.
[2020-11-16 08:00] VITALS: BP 115/78
[2020-11-16 08:38] LABS: BASOPHILS # (AUTO) 0.1 K/uL (0.00-0.22); BASOPHILS % (AUTO) 1.6 % (0.0-2.0); EOSINOPHILS # (AUTO) 0.2 K/uL (0-0.4); EOSINOPHILS % (AUTO) 7.6 % (0.0-4.0); HEMATOCRIT 35.7 % (36-48); HEMOGLOBIN 11.8 g/dL (12.0-16.0); LYMPHOCYTES # (AUTO) 0.7 K/uL (2.5-16.5); LYMPHOCYTES % (AUTO) 20.3 % (20.5-51.1); MEAN CORPUSCULAR HEMOGLOBIN 32 pg (27-31); MEAN CORPUSCULAR HGB CONC 33 g/dL (33-37); MEAN CORPUSCULAR VOLUME 95.5 fL (80-94); MONOCYTES # (AUTO) 0.4 K/uL (0.8-1.0); MONOCYTES % (AUTO) 12.9 % (1.7-9.3); NEUTROPHILS # (AUTO) 1.8 K/uL (1.8-7.7); NEUTROPHILS % (AUTO) 57.6 % (42.2-75.2); PLATELET COUNT (AUTO) 115 K/uL (140-450); RED BLOOD CELL COUNT(AUTO) 3.74 MIL/uL (4.20-5.40); RED CELL DISTRIBUTION WIDTH 18.2 % (11.6-13.7); WHITE BLOOD COUNT (AUTO) 3.2 K/uL (4.8-10.8)
[2020-11-16] MEDS: hydrALAZINE 25 MG TAB PO SCH ×2 (09:00→13:00)
--- NOTE | 2020-11-16 09:15 | NUR ---
MEDICATIONS DUE GIVEN TO PATIENT. HYDRALAZINE NOT GIVEN D/T BP 115/78. PAIN 8/10 PAIN MEDICATION GIVEN. NO DISTRESS NOTED. CALL LIGHT WITHIN REACH. WILL CONTINUE TO MONITOR NEEDED.
[2020-11-16 09:19] LABS: ALBUMIN 2.5 g/dL (3.4-5.0); ANION GAP 14.1 (8-16); CARBON DIOXIDE 25.1 mmol/L (21-32); CREATININE 3.2 mg/dL (0.6-1.3); MAGNESIUM 1.7 mg/dL (1.8-2.4); PHOSPHORUS 4.8 mg/dL (2.5-4.9); POTASSIUM 4.2 mmol/L (3.5-5.1); TOTAL BILIRUBIN 0.5 mg/dL (0.0-1.0)
[2020-11-16] MEDS: FUROSEMIDE 40 MG/4 ML VIAL IVP SCH (10:13)
[2020-11-16] MEDS: carvediloL 12.5 MG TAB PO SCH (10:14)
[2020-11-16] MEDS: DOCUSATE SODIUM 100 MG GELCAP PO SCH (10:15)
[2020-11-16] MEDS: APIXABAN 2.5 MG TAB PO SCH (10:26)
[2020-11-16 12:00] VITALS: BP 118/71
--- NOTE | 2020-11-16 17:00 | NUR ---
DISCHARGED INSTRUCTIONS GIVEN TO PATIENT AT BEDSIDE AND ENCOURAGED TO FOLLOW UP PCP AND DIALYSIS CENTER FOR HER SCHEDULED DIALYSIS MWF. ENCOURAGED TO SEEK MEDICAL HELP IN CASE OF EMERGENCIES, REMOVED ALL PATIENT ID BAND AND IV INTACT NO BLEEDING, CHANGE PT CLOTHING TO OWN CLOTHES, ESCORTED PT TO FRONT LOBBY VIA WHEEL CHAIR PT IS GOING HOME.PT IS STABLE
== END 2020-11-16 16:15 | disposition home or self-care (01) ==
LOC: MED 19:43 → MTU 23:46
PROVIDERS: ADMIT Internal Medicine; ATTEND Internal Medicine
PROC: 5A1D70Z Performance of Urinary Filtration, Intermittent, Less than 6 Hours Per Day (ICD-10-PCS; principal; 2020-11-14)
PROC: 0W9G3ZZ Drainage of Peritoneal Cavity, Percutaneous Approach (ICD-10-PCS; 2020-11-15)
DX: K74.60 Unspecified cirrhosis of liver (principal); R18.8 Other ascites; I12.0 Hypertensive chronic kidney disease with stage 5 chronic kidney disease or end stage renal disease; N18.6 End stage renal disease; Z88.8 Allergy status to other drugs, medicaments and biological substances; Z20.822 Contact with and (suspected) exposure to COVID-19; E11.22 Type 2 diabetes mellitus with diabetic chronic kidney disease; J44.9 Chronic obstructive pulmonary disease, unspecified; I48.0 Paroxysmal atrial fibrillation; E78.5 Hyperlipidemia, unspecified; E66.9 Obesity, unspecified; Z68.26 Body mass index [BMI] 26.0-26.9, adult; E87.5 Hyperkalemia; Z91.15 Patient's noncompliance with renal dialysis; D61.818 Other pancytopenia
CPT/HCPCS: 36415; 49083; 71045; 76705; 80053; 81001; 82945; 82948; 83036; 83735; 84100; 84157; 85025; 85610; 85730; 89051; 93005; 96374; 96375; 99285; C9113; J0610; J1644; J1815; J1940; J2001; J2405; J7030; U0003

== ENCOUNTER 2023-07-06 15:16 | Inpatient (IN) | payer OTHER ==
[~2023-07-06] VITALS: Ht 170.2 cm; Wt 64.9 kg
[~2023-07-06 15:16] MED LIST changes: +DOCU-300 PO; -LOSA50TA66 PO; +POTA10TA70 PO; -POTA10TE30 PO; +ROSU20TA1 PO; -SYN.05 PO
[2023-07-06 16:08] VITALS: BP 160/117; PULSE 109; RESP 18; TEMP 99.4; O2SAT 98
[2023-07-06] MEDS ORDERED: PIPERACILLIN/TAZOBACTAM 3.375 GM in DEXTROSE 5% 50 ML IV ONE (16:40)
[2023-07-06] MEDS ORDERED: PIPERACILLIN/TAZOBACTAM 3.375 GM VIAL IV ONE (16:43)
[2023-07-06 17:02] LABS: BASOPHILS # (AUTO) 0.1 K/uL (0.00-0.22); BASOPHILS % (AUTO) 0.6 % (0.0-2.0); EOSINOPHILS # (AUTO) 0.3 K/uL (0-0.4); EOSINOPHILS % (AUTO) 1.5 % (0.0-4.0); HEMATOCRIT 32.2 % (36-48); HEMOGLOBIN 10.9 g/dL (12.0-16.0); LYMPHOCYTES # (AUTO) 1.1 K/uL (2.5-16.5); LYMPHOCYTES % (AUTO) 5.9 % (20.5-51.1); MEAN CORPUSCULAR HEMOGLOBIN 31 pg (27-31); MEAN CORPUSCULAR HGB CONC 34 g/dL (33-37); MEAN CORPUSCULAR VOLUME 92.1 fL (80-94); MONOCYTES # (AUTO) 0.9 K/uL (0.8-1.0); MONOCYTES % (AUTO) 5.1 % (1.7-9.3); NEUTROPHILS % (AUTO) 86.9 % (42.2-75.2); PLATELET COUNT (AUTO) 351 K/uL (140-450); RED BLOOD CELL COUNT(AUTO) 3.49 MIL/uL (4.20-5.40); RED CELL DISTRIBUTION WIDTH 13.6 % (11.6-13.7); WHITE BLOOD COUNT (AUTO) 18.4 K/uL (4.8-10.8)
[2023-07-06] MEDS: NACL 0.9% 1,000 ML IV SCH (17:08)
[2023-07-06 17:21] LABS: ACETONE, SERUM NEGATIVE (NEGATIVE)
[2023-07-06 17:25] LABS: ALANINE AMINOTRANSFERASE 12 U/L (12-78); ALBUMIN 2.8 g/dL (3.4-5.0); ALKALINE PHOSPHATASE 128 U/L (50-136); ANION GAP 12.9 (8-16); ASPARTATE AMINOTRANSFERASE 16 U/L (15-37); CALCIUM 8.3 mg/dL (8.5-10.1); CARBON DIOXIDE 29.2 mmol/L (21-32); CHLORIDE 90 mmol/L (98-107); CREATINE KINASE, TOTAL 45 U/L (26-192); CREATININE 3.6 mg/dL (0.6-1.3); GFR ARICAN-AMERICAN 16 mL/min (>90); GFR NON ARICAN-AMERICAN 13 mL/min (>90); GLUCOSE 385 mg/dL (74-106); INR 0.93 (0.8-1.2); PARTIAL THROMBOPLASTIN TIME 29.6 secs (22-35.6); POTASSIUM 4.1 mmol/L (3.5-5.1); PROTHROMBIN TIME 9.8 secs (10.8-13.4); SODIUM SERUM 128 mmol/L (136-145); TOTAL BILIRUBIN 0.5 mg/dL (0.0-1.0); TOTAL PROTEIN, SERUM 7.8 g/dL (6.4-8.2); UREA NITROGEN, BLOOD 45 mg/dL (7-18)
[2023-07-06 17:36] LABS: LACTIC ACID 1.2 mmol/L (0.4-2.0)
[2023-07-06] MEDS ORDERED: INSULIN REGULAR, HUMAN 100 UNIT/ML VIAL SUBQ ONE (17:45)
[2023-07-06 19:36] VITALS: BP 175/83; PULSE 100; PULSE 105; RESP 18; RESP 2; TEMP 98.8; O2SAT 96
[2023-07-06 20:27] VITALS: PULSE 107
[2023-07-06] MEDS ORDERED: MELATONIN 3 MG TAB PO PRN (20:55)
[2023-07-06] MEDS ORDERED: DEXTROSE 50% 50 ML SYR IVP PRN (21:20)
[2023-07-06] MEDS ORDERED: NACL 0.9% 1,000 ML IV SCH (21:25)
[2023-07-07] VITALS (9 sets, daily range): BP systolic 117–158; BP diastolic 63–98; PULSE 67–107; RESP 16–18; TEMP 97–98.8; O2SAT 94–100
[2023-07-07] MEDS ORDERED: NACL 0.9% 1,000 ML IV SCH (01:15)
[2023-07-07] MEDS: BLOOD GLUCOSE MONITORING 1 DEV DEV FS SCH ×4 (07:12→22:30)
[2023-07-07] MEDS: NACL 0.9% 1,000 ML IV SCH (07:23)
[2023-07-07 11:02] LABS: BASOPHILS # (AUTO) 0.1 K/uL (0.00-0.22); BASOPHILS % (AUTO) 0.6 % (0.0-2.0); EOSINOPHILS # (AUTO) 0.4 K/uL (0-0.4); EOSINOPHILS % (AUTO) 2.3 % (0.0-4.0); HEMATOCRIT 29.8 % (36-48); HEMOGLOBIN 10.2 g/dL (12.0-16.0); LYMPHOCYTES # (AUTO) 1.3 K/uL (2.5-16.5); LYMPHOCYTES % (AUTO) 8.1 % (20.5-51.1); MEAN CORPUSCULAR HEMOGLOBIN 31 pg (27-31); MEAN CORPUSCULAR HGB CONC 34 g/dL (33-37); MONOCYTES # (AUTO) 0.9 K/uL (0.8-1.0); MONOCYTES % (AUTO) 5.7 % (1.7-9.3); NEUTROPHILS # (AUTO) 12.9 K/uL (1.8-7.7); NEUTROPHILS % (AUTO) 83.3 % (42.2-75.2); PLATELET COUNT (AUTO) 340 K/uL (140-450); RED BLOOD CELL COUNT(AUTO) 3.25 MIL/uL (4.20-5.40); RED CELL DISTRIBUTION WIDTH 13.5 % (11.6-13.7); WHITE BLOOD COUNT (AUTO) 15.5 K/uL (4.8-10.8)
[2023-07-07 11:24] LABS: ALBUMIN 2.3 g/dL (3.4-5.0); ANION GAP 9.7 (8-16); CALCIUM 8.2 mg/dL (8.5-10.1); CARBON DIOXIDE 30.4 mmol/L (21-32); CREATININE 3.7 mg/dL (0.6-1.3); POTASSIUM 4.1 mmol/L (3.5-5.1); TOTAL BILIRUBIN 0.5 mg/dL (0.0-1.0); TOTAL PROTEIN, SERUM 6.8 g/dL (6.4-8.2)
[2023-07-07] MEDS: INSULIN LISPRO SLIDING SCALE 100 UNITS/ML VIAL SUBQ PRN ×2 (17:07→22:34)
[2023-07-08 04:00] VITALS: BP 177/95; PULSE 85; RESP 18; TEMP 98.7; O2SAT 95
[2023-07-08] MEDS ORDERED: hydrALAZINE 20 MG/ML VIAL IVP ONE (04:40)
[2023-07-08] MEDS: BLOOD GLUCOSE MONITORING 1 DEV DEV FS SCH ×4 (06:20→20:23)
[2023-07-08] MEDS ORDERED: HYDROGEN PEROXIDE 3% 240 ML BTL TP ONE (07:40)
[2023-07-08] MEDS ORDERED: BUPIVACAINE-MPF 0.5% 30 ML VIAL INJ ONE (07:40)
[2023-07-08] MEDS ORDERED: PROPOFOL 200 MG/20 ML VIAL IV ONE ×2 (07:57→08:37)
[2023-07-08] MEDS ORDERED: LIDOCAINE MPF 2% 100 MG/5 ML VIAL INJ ONE (07:57)
[2023-07-08 08:00] VITALS: O2SAT 94
[2023-07-08] MEDS ORDERED: ceFAZolin 2,000 MG VIAL ONE (08:27)
[2023-07-08] MEDS ORDERED: ceFAZolin 1,000 MG VIAL ONE ×2 (08:36)
[2023-07-08] MEDS ORDERED: ONDANSETRON 4 MG/2 ML VIAL ONE (08:37)
[2023-07-08] MEDS ORDERED: HYDROmorphone 1 MG/ML AMP IVP PRN (08:55)
[2023-07-08] MEDS ORDERED: LABETALOL 20 MG/4 ML VIAL IVP PRN (08:56)
[2023-07-08] MEDS ORDERED: METOCLOPRAMIDE 10 MG/2 ML INJ VIAL IVP PRN (08:56)
[2023-07-08] MEDS ORDERED: hydrALAZINE 20 MG/ML VIAL IVP PRN (08:56)
[2023-07-08 11:15] VITALS: O2SAT 98
[2023-07-08] MEDS: INSULIN LISPRO SLIDING SCALE 100 UNITS/ML VIAL SUBQ PRN ×3 (12:12→20:25)
[2023-07-08] MEDS: MORPHINE SULFATE 2 MG/ML SYR IVP PRN (16:45)
[2023-07-08 20:00] VITALS: BP 143/70; PULSE 92; RESP 18; TEMP 98.8; O2SAT 94
[2023-07-09 04:00] VITALS: BP 113/67; PULSE 111; RESP 18; TEMP 98.4; O2SAT 98
[2023-07-09] MEDS: BLOOD GLUCOSE MONITORING 1 DEV DEV FS SCH ×3 (06:54→16:21)
[2023-07-09] MEDS: MORPHINE SULFATE 2 MG/ML SYR IVP PRN ×2 (08:09→15:42)
[2023-07-09 09:09] VITALS: PULSE 75; RESP 18; O2SAT 95
[2023-07-09 09:41] VITALS: BP 144/75; PULSE 75; RESP 18; TEMP 98.1; O2SAT 95
[2023-07-09] MEDS: INSULIN LISPRO SLIDING SCALE 100 UNITS/ML VIAL SUBQ PRN (16:26)
[2023-07-09] MEDS ORDERED: carvediloL 12.5 MG TAB PO SCH (21:00)
[2023-07-09] MEDS ORDERED: DOCUSATE SODIUM 100 MG GELCAP PO SCH (21:00)
[2023-07-09] MEDS ORDERED: APIXABAN 2.5 MG TAB PO SCH (21:00)
[2023-07-09] MEDS ORDERED: POTASSIUM CHLORIDE 10 MEQ TABER PO SCH (21:00)
[2023-07-10] MEDS ORDERED: amLODIPine 5 MG TAB PO SCH (09:00)
[2023-07-10] MEDS ORDERED: FUROSEMIDE 40 MG TAB PO SCH (09:00)
== END 2023-07-09 18:00 | DRG 853 ==
LOC: MED 15:16 → MTU 18:39
PROVIDERS: ADMIT Student in an Organized Health Care Education/Training Program; ATTEND Student in an Organized Health Care Education/Training Program
PROC: 5A1D70Z Performance of Urinary Filtration, Intermittent, Less than 6 Hours Per Day (ICD-10-PCS; 2023-07-07)
PROC: 0QBN0ZZ Excision of Right Metatarsal, Open Approach (ICD-10-PCS; principal; 2023-07-08 07:30)
PROC: 5A1D70Z Performance of Urinary Filtration, Intermittent, Less than 6 Hours Per Day (ICD-10-PCS; 2023-07-09)
DX: A41.9 Sepsis, unspecified organism (principal); A48.0 Gas gangrene; N18.6 End stage renal disease; E11.52 Type 2 diabetes mellitus with diabetic peripheral angiopathy with gangrene; L02.415 Cutaneous abscess of right lower limb; E87.1 Hypo-osmolality and hyponatremia; I13.2 Hypertensive heart and chronic kidney disease with heart failure and with stage 5 chronic kidney disease, or end stage renal disease; L03.115 Cellulitis of right lower limb; E11.621 Type 2 diabetes mellitus with foot ulcer; L97.519 Non-pressure chronic ulcer of other part of right foot with unspecified severity; I48.91 Unspecified atrial fibrillation; I50.9 Heart failure, unspecified; D64.9 Anemia, unspecified; E87.8 Other disorders of electrolyte and fluid balance, not elsewhere classified; E83.51 Hypocalcemia; E11.22 Type 2 diabetes mellitus with diabetic chronic kidney disease; Z79.01 Long term (current) use of anticoagulants; Z88.8 Allergy status to other drugs, medicaments and biological substances; Z82.49 Family history of ischemic heart disease and other diseases of the circulatory system
CPT/HCPCS: 36415; 71045; 73630; 80053; 82009; 82550; 82803; 82948; 83605; 85025; 85610; 85730; 87040; 87070; 87075; 87081; 87186; 87205; 88304; 88305; 88311; 93005; 96365; 96372; 99291; J0360; J0690; J0696; J1815; J2001; J2270; J2405; J2543; J2704; J3490; J7030; J7060

== ENCOUNTER 2023-10-11 00:50 | Inpatient (IN) | payer OTHER ==
[~2023-10-11] VITALS: Ht 170.2 cm; Wt 63.5 kg
[2023-10-11 01:08] VITALS: BP 173/84; PULSE 74; RESP 18; TEMP 97.1; O2SAT 97
[2023-10-11 02:38] LABS: BASOPHILS # (AUTO) 0.1 K/uL (0.00-0.22); BASOPHILS % (AUTO) 1.1 % (0.0-2.0); EOSINOPHILS # (AUTO) 0.6 K/uL (0-0.4); EOSINOPHILS % (AUTO) 6.3 % (0.0-4.0); HEMATOCRIT 31.2 % (36-48); HEMOGLOBIN 10.4 g/dL (12.0-16.0); LYMPHOCYTES # (AUTO) 1.9 K/uL (2.5-16.5); LYMPHOCYTES % (AUTO) 21.6 % (20.5-51.1); MEAN CORPUSCULAR HEMOGLOBIN 31 pg (27-31); MEAN CORPUSCULAR HGB CONC 33 g/dL (33-37); MEAN CORPUSCULAR VOLUME 93.4 fL (80-94); MONOCYTES # (AUTO) 0.6 K/uL (0.8-1.0); MONOCYTES % (AUTO) 6.7 % (1.7-9.3); NEUTROPHILS # (AUTO) 5.8 K/uL (1.8-7.7); NEUTROPHILS % (AUTO) 64.3 % (42.2-75.2); PLATELET COUNT (AUTO) 195 K/uL (140-450); RED BLOOD CELL COUNT(AUTO) 3.34 MIL/uL (4.20-5.40); RED CELL DISTRIBUTION WIDTH 14.4 % (11.6-13.7)
[2023-10-11 02:54] LABS: ANION GAP 13.4 (8-16); CREATININE 4.4 mg/dL (0.6-1.3); POTASSIUM 3.4 mmol/L (3.5-5.1)
[2023-10-11 02:56] LABS: ALANINE AMINOTRANSFERASE 10 U/L (12-78); ALKALINE PHOSPHATASE 111 U/L (50-136); ASPARTATE AMINOTRANSFERASE 13 U/L (15-37); BILIRUBIN,DIRECT 0.1 mg/dL (0.0-0.3); TOTAL BILIRUBIN 0.4 mg/dL (0.0-1.0)
[2023-10-11 02:57] LABS: ALBUMIN 2.5 g/dL (3.4-5.0); TOTAL PROTEIN, SERUM 6.7 g/dL (6.4-8.2)
[2023-10-11] MEDS ORDERED: MORPHINE SULFATE 4 MG/ML SYR IVP ONE ×2 (03:00→06:40)
[2023-10-11] MEDS ORDERED: ZOLPIDEM 10 MG TAB PO PRN (06:40)
[2023-10-11] MEDS ORDERED: DOCUSATE SODIUM 100 MG GELCAP PO PRN (06:40)
[2023-10-11] MEDS ORDERED: DEXTROSE 50% 50 ML SYR IVP PRN (06:40)
[2023-10-11] MEDS ORDERED: MAG SULF 2000 MG/WATER PREMIX 50 ML IV PRN (06:40)
[2023-10-11] MEDS ORDERED: LORazepam 2 MG/ML VIAL IVP PRN (06:40)
[2023-10-11] MEDS ORDERED: ACETAMINOPHEN 325 MG TAB PO PRN (06:40)
[2023-10-11] MEDS ORDERED: ONDANSETRON 4 MG/2 ML VIAL IVP PRN (06:40)
[2023-10-11] MEDS ORDERED: POTASSIUM CHLORIDE 10 MEQ TABER PO PRN (06:40)
[2023-10-11] MEDS: DEXT 5% / NACL 0.9% 500 ML IV SCH ×2 (07:24→22:50)
[2023-10-11] MEDS: BLOOD GLUCOSE MONITORING 1 DEV DEV FS SCH ×4 (08:21→22:00)
[2023-10-11] MEDS: INSULIN LISPRO SLIDING SCALE 100 UNITS/ML VIAL SUBQ PRN (08:27)
[2023-10-11] MEDS ORDERED: amLODIPine 5 MG TAB PO SCH (09:00)
[2023-10-11] MEDS ORDERED: carvediloL 12.5 MG TAB PO SCH (09:00)
[2023-10-11] MEDS: POTASSIUM CHLORIDE 10 MEQ TABER PO SCH ×2 (09:33→22:07)
[2023-10-11] MEDS: FUROSEMIDE 40 MG TAB PO SCH (09:37)
[2023-10-11] MEDS: hydrALAZINE 25 MG TAB PO SCH ×3 (09:48→17:38)
[2023-10-11] MEDS: MORPHINE SULFATE 2 MG/ML SYR IVP PRN ×2 (10:55→22:33)
[2023-10-11] MEDS ORDERED: LORazepam 1 MG TAB PO PRN (15:40)
[2023-10-11] MEDS ORDERED: ALBUMIN HUMAN 25% 100 ML IV ONE (16:31)
[2023-10-11] MEDS ORDERED: ALBUMIN HUMAN 25% 100 ML IV SCH (17:40)
[2023-10-11] MEDS ORDERED: NACL 0.9% 500 ML IV SCH (19:20)
[2023-10-11 20:25] VITALS: PULSE 70; PULSE 72; RESP 18; O2SAT 94; O2SAT 95
[2023-10-12] VITALS (7 sets, daily range): BP systolic 132–143; BP diastolic 57–95; PULSE 70–87; RESP 18; TEMP 97.2–97.8; O2SAT 94–99
[2023-10-12] MEDS: DEXT 5% / NACL 0.9% 500 ML IV SCH (03:07)
[2023-10-12] MEDS: MORPHINE SULFATE 2 MG/ML SYR IVP PRN ×3 (05:01→17:24)
[2023-10-12] MEDS: BLOOD GLUCOSE MONITORING 1 DEV DEV FS SCH ×4 (06:44→21:00)
[2023-10-12] MEDS: INSULIN LISPRO SLIDING SCALE 100 UNITS/ML VIAL SUBQ PRN ×4 (06:46→22:03)
[2023-10-12 07:20] LABS: ANION GAP 11.5 (8-16); CALCIUM 7.6 mg/dL (8.5-10.1); CARBON DIOXIDE 26.8 mmol/L (21-32); CREATININE 2.8 mg/dL (0.6-1.3); POTASSIUM 4.3 mmol/L (3.5-5.1)
[2023-10-12 07:23] LABS: BASOPHILS % (AUTO) 0.6 % (0.0-2.0); EOSINOPHILS # (AUTO) 0.4 K/uL (0-0.4); EOSINOPHILS % (AUTO) 5.2 % (0.0-4.0); HEMOGLOBIN 8.6 g/dL (12.0-16.0); LYMPHOCYTES # (AUTO) 1.4 K/uL (2.5-16.5); LYMPHOCYTES % (AUTO) 17.1 % (20.5-51.1); MEAN CORPUSCULAR HEMOGLOBIN 31 pg (27-31); MEAN CORPUSCULAR HGB CONC 33 g/dL (33-37); MEAN CORPUSCULAR VOLUME 93.5 fL (80-94); MONOCYTES # (AUTO) 0.5 K/uL (0.8-1.0); MONOCYTES % (AUTO) 6.7 % (1.7-9.3); NEUTROPHILS # (AUTO) 5.7 K/uL (1.8-7.7); NEUTROPHILS % (AUTO) 70.4 % (42.2-75.2); PLATELET COUNT (AUTO) 151 K/uL (140-450); RED BLOOD CELL COUNT(AUTO) 2.79 MIL/uL (4.20-5.40); WHITE BLOOD COUNT (AUTO) 8.1 K/uL (4.8-10.8)
[2023-10-12] MEDS ORDERED: ceFAZolin 2,000 MG VIAL ONE ×2 (07:23→07:30)
[2023-10-12] MEDS: BUPIVACAINE-MPF 0.5% 30 ML VIAL INJ ONE ×2 (07:23→09:20)
[2023-10-12] MEDS ORDERED: ONDANSETRON 4 MG/2 ML VIAL ONE ×2 (07:30→08:26)
[2023-10-12] MEDS ORDERED: METOCLOPRAMIDE 10 MG/2 ML INJ VIAL ONE ×2 (07:30→08:26)
[2023-10-12] MEDS ORDERED: ePHEDrine 50 MG/ML VIAL ONE ×2 (07:30→09:10)
[2023-10-12] MEDS ORDERED: SEVOFLURANE 250 ML BTL INH ONE (07:30)
[2023-10-12] MEDS ORDERED: DEXAMETHASONE 10 MG/ML VIAL ONE (07:30)
[2023-10-12] MEDS ORDERED: PROPOFOL 200 MG/20 ML VIAL IV ONE ×2 (07:30→07:39)
[2023-10-12] MEDS ORDERED: fentaNYL citrate 0.05 MG/ML VIAL ONE (07:39)
[2023-10-12] MEDS ORDERED: MIDAZOLAM 2 MG/2 ML VIAL ONE (07:39)
[2023-10-12] MEDS ORDERED: DEXAMETHASONE 4 MG/ML VIAL ONE (08:26)
[2023-10-12] MEDS: hydrALAZINE 25 MG TAB PO SCH ×3 (09:00→16:22)
[2023-10-12] MEDS ORDERED: MORPHINE SULFATE 4 MG/ML SYR ONE (10:10)
[2023-10-12] MEDS: FUROSEMIDE 40 MG TAB PO SCH (10:45)
[2023-10-12] MEDS: POTASSIUM CHLORIDE 10 MEQ TABER PO SCH ×2 (10:45→21:57)
[2023-10-12 22:13] LABS: AMPHETAMINE, URINE POSITIVE ng/ml (NEG <=1000); BARBITURATE, URINE NEGATIVE ng/ml (NEG <=200); BENZODIAZEPINE, URINE NEGATIVE ng/mL (NEG <=200)
[2023-10-12 22:14] LABS: CANNABINOID, URINE NEGATIVE ng/mL (NEG <=50); COCAINE, URINE NEGATIVE ng/mL (NEG <=300); OPIATE, URINE POSITIVE ng/mL (NEG <=2000); PHENCYCLIDINE SCREEN,URINE NEGATIVE ng/mL (NEG <=25)
[2023-10-13 04:00] VITALS: BP 148/77; PULSE 86; RESP 18; TEMP 97.8; O2SAT 99
[2023-10-13] MEDS: MORPHINE SULFATE 2 MG/ML SYR IVP PRN (05:20)
[2023-10-13] MEDS: BLOOD GLUCOSE MONITORING 1 DEV DEV FS SCH ×4 (06:37→20:12)
[2023-10-13] MEDS: INSULIN LISPRO SLIDING SCALE 100 UNITS/ML VIAL SUBQ PRN ×4 (06:41→20:19)
[2023-10-13 07:26] LABS: BASOPHILS % (AUTO) 0.2 % (0.0-2.0); EOSINOPHILS % (AUTO) 0.2 % (0.0-4.0); HEMATOCRIT 24.8 % (36-48); HEMOGLOBIN 8.1 g/dL (12.0-16.0); LYMPHOCYTES # (AUTO) 1.1 K/uL (2.5-16.5); LYMPHOCYTES % (AUTO) 7.3 % (20.5-51.1); MEAN CORPUSCULAR HEMOGLOBIN 31 pg (27-31); MEAN CORPUSCULAR HGB CONC 33 g/dL (33-37); MEAN CORPUSCULAR VOLUME 93.5 fL (80-94); MONOCYTES # (AUTO) 0.9 K/uL (0.8-1.0); MONOCYTES % (AUTO) 5.7 % (1.7-9.3); NEUTROPHILS # (AUTO) 13.2 K/uL (1.8-7.7); NEUTROPHILS % (AUTO) 86.6 % (42.2-75.2); PLATELET COUNT (AUTO) 155 K/uL (140-450); RED BLOOD CELL COUNT(AUTO) 2.66 MIL/uL (4.20-5.40); RED CELL DISTRIBUTION WIDTH 14.1 % (11.6-13.7); WHITE BLOOD COUNT (AUTO) 15.3 K/uL (4.8-10.8)
[2023-10-13 07:50] LABS: ANION GAP 16.1 (8-16); CALCIUM 8.1 mg/dL (8.5-10.1); CARBON DIOXIDE 24.1 mmol/L (21-32); CREATININE 3.7 mg/dL (0.6-1.3); POTASSIUM 5.2 mmol/L (3.5-5.1)
[2023-10-13 08:00] VITALS: BP 129/64; PULSE 76; RESP 18; TEMP 98.2; O2SAT 100
[2023-10-13] MEDS ORDERED: EPOETIN ALFA 10,000 UNITS/ML VIAL IV SCH (09:00)
[2023-10-13 11:45] VITALS: BP 141/55; PULSE 104; RESP 18; TEMP 97.3; O2SAT 99
[2023-10-13] MEDS: POTASSIUM CHLORIDE 10 MEQ TABER PO SCH ×2 (11:47→20:07)
[2023-10-13] MEDS: hydrALAZINE 25 MG TAB PO SCH ×3 (11:47→16:27)
[2023-10-13] MEDS: FUROSEMIDE 40 MG TAB PO SCH (11:48)
[2023-10-13 13:00] VITALS: BP 125/52; PULSE 78; RESP 18; TEMP 97.9; O2SAT 98
[2023-10-13 16:00] VITALS: BP 125/74; PULSE 86; RESP 18; TEMP 98.5; O2SAT 97
[2023-10-13 20:00] VITALS: BP 142/62; PULSE 84; PULSE 99; RESP 18; TEMP 99; O2SAT 99
[2023-10-13] MEDS: HYDROcodone/APAP 5/325 MG 1 TAB TAB PO PRN (20:06)
[2023-10-14] MEDS: HYDROcodone/APAP 5/325 MG 1 TAB TAB PO PRN (03:19)
[2023-10-14 04:00] VITALS: BP 114/47; PULSE 105; RESP 20; TEMP 98.6; O2SAT 99
[2023-10-14 06:34] LABS: BASOPHILS % (AUTO) 0.4 % (0.0-2.0); EOSINOPHILS # (AUTO) 0.4 K/uL (0-0.4); EOSINOPHILS % (AUTO) 3.5 % (0.0-4.0); HEMATOCRIT 23.3 % (36-48); HEMOGLOBIN 7.7 g/dL (12.0-16.0); LYMPHOCYTES # (AUTO) 1.9 K/uL (2.5-16.5); LYMPHOCYTES % (AUTO) 15.8 % (20.5-51.1); MEAN CORPUSCULAR HEMOGLOBIN 31 pg (27-31); MEAN CORPUSCULAR HGB CONC 33 g/dL (33-37); MEAN CORPUSCULAR VOLUME 93.7 fL (80-94); MONOCYTES # (AUTO) 0.8 K/uL (0.8-1.0); MONOCYTES % (AUTO) 6.7 % (1.7-9.3); NEUTROPHILS # (AUTO) 8.7 K/uL (1.8-7.7); NEUTROPHILS % (AUTO) 73.6 % (42.2-75.2); PLATELET COUNT (AUTO) 163 K/uL (140-450); RED BLOOD CELL COUNT(AUTO) 2.49 MIL/uL (4.20-5.40); RED CELL DISTRIBUTION WIDTH 14.5 % (11.6-13.7); WHITE BLOOD COUNT (AUTO) 11.8 K/uL (4.8-10.8)
[2023-10-14] MEDS: INSULIN LISPRO SLIDING SCALE 100 UNITS/ML VIAL SUBQ PRN ×3 (06:37→16:05)
[2023-10-14] MEDS: BLOOD GLUCOSE MONITORING 1 DEV DEV FS SCH ×3 (06:38→16:05)
[2023-10-14 08:00] VITALS: BP 129/68; PULSE 91; RESP 17; TEMP 98.5; O2SAT 96
[2023-10-14 08:07] LABS: CARBON DIOXIDE 24.3 mmol/L (21-32); CREATININE 3.5 mg/dL (0.6-1.3); POTASSIUM 4.3 mmol/L (3.5-5.1)
[2023-10-14] MEDS: hydrALAZINE 25 MG TAB PO SCH ×3 (08:45→17:00)
[2023-10-14] MEDS: FUROSEMIDE 40 MG TAB PO SCH (08:46)
[2023-10-14] MEDS: POTASSIUM CHLORIDE 10 MEQ TABER PO SCH (08:46)
[2023-10-14] MEDS ORDERED: ASPI-1822 PO (09:49)
[2023-10-14 12:30] VITALS: BP 108/55; PULSE 75; RESP 18; TEMP 97.2; O2SAT 96
[2023-10-14 16:00] VITALS: BP 151/89; PULSE 117; RESP 17; TEMP 98.6; O2SAT 96
[2023-10-15] MEDS ORDERED: RETACRIT 10,000 UNITS IV SCH (09:00)
== END 2023-10-14 18:30 | DRG 480 ==
LOC: MED 00:50 → MTU 06:41
PROVIDERS: ADMIT General Practice; ATTEND General Practice
PROC: 5A1D70Z Performance of Urinary Filtration, Intermittent, Less than 6 Hours Per Day (ICD-10-PCS; 2023-10-11)
PROC: 0QSC06Z Reposition Left Lower Femur with Intramedullary Internal Fixation Device, Open Approach (ICD-10-PCS; principal; 2023-10-12 07:30)
PROC: 5A1D70Z Performance of Urinary Filtration, Intermittent, Less than 6 Hours Per Day (ICD-10-PCS; 2023-10-13)
DX: S72.402A Unspecified fracture of lower end of left femur, initial encounter for closed fracture (principal); N17.0 Acute kidney failure with tubular necrosis; N18.6 End stage renal disease; I13.2 Hypertensive heart and chronic kidney disease with heart failure and with stage 5 chronic kidney disease, or end stage renal disease; E11.22 Type 2 diabetes mellitus with diabetic chronic kidney disease; E78.5 Hyperlipidemia, unspecified; I50.9 Heart failure, unspecified; W18.39XA Other fall on same level, initial encounter; E11.65 Type 2 diabetes mellitus with hyperglycemia; Z99.2 Dependence on renal dialysis; Z88.8 Allergy status to other drugs, medicaments and biological substances; Z79.899 Other long term (current) drug therapy; Z91.148 Patient's other noncompliance with medication regimen for other reason; Y93.89 Activity, other specified; Y99.8 Other external cause status; Y92.009 Unspecified place in unspecified non-institutional (private) residence as the place of occurrence of the external cause
CPT/HCPCS: 36415; 73562; 80048; 80076; 80305; 82948; 83880; 84484; 85025; 86886; 86900; 86901; 87040; 87081; 93005; 96374; 97112; 97116; 97163-GP; 97530; 99285; C1713; J0690; J0885; J1100; J1815; J2250; J2270; J2405; J2704; J2765; J3010; J3490; J7030; J7060; P9046; Q0092

== ENCOUNTER 2024-03-11 08:23 | Emergency (ER) | payer OTHER ==
[~2024-03-11] VITALS: Ht 170.2 cm; Wt 63.5 kg
[~2024-03-11 08:23] MED LIST changes: +ASPI-1822 PO
[2024-03-11 08:30] VITALS: BP 130/82; PULSE 108; RESP 18; TEMP 98.3; O2SAT 98
[2024-03-11] MEDS ORDERED: CYCLOBENZAPRINE 10 MG TAB ONE (09:41)
[2024-03-11] MEDS ORDERED: KETOROLAC 30 MG/ML VIAL ONE (09:41)
[2024-03-11] MEDS ORDERED: LIDOCAINE 5% 1 EA PATCH TP ONE (09:41)
[2024-03-11] MEDS: KETOROLAC 30 MG/ML VIAL IM ONE (09:48)
[2024-03-11] MEDS: CYCLOBENZAPRINE 10 MG TAB PO ONE (09:48)
[2024-03-11] MEDS: LIDOCAINE 5% 1 EA PATCH TP ONE (09:49)
[2024-03-11] MEDS ORDERED: ACET-10509 PO (10:20)
[2024-03-11] MEDS ORDERED: CYCL-711 PO (10:20)
[2024-03-11] MEDS ORDERED: LID5T TP (10:20)
[2024-03-11 10:25] VITALS: BP 175/88; PULSE 99; RESP 22; TEMP 97.2; O2SAT 98
== END 2024-03-11 10:25 | disposition home or self-care (01) ==
LOC: MED 08:23
DX: S43.491A Other sprain of right shoulder joint, initial encounter (principal); S13.4XXA Sprain of ligaments of cervical spine, initial encounter; I11.9 Hypertensive heart disease without heart failure; E11.9 Type 2 diabetes mellitus without complications; N28.9 Disorder of kidney and ureter, unspecified; J44.9 Chronic obstructive pulmonary disease, unspecified; Z79.4 Long term (current) use of insulin; Z79.899 Other long term (current) drug therapy; X58.XXXA Exposure to other specified factors, initial encounter; Y93.89 Activity, other specified; Y92.89 Other specified places as the place of occurrence of the external cause; Y99.8 Other external cause status
CPT/HCPCS: 72040; 96372; 99283; J1885